=== PATIENT | female | born 1935 | race Caucasian/White ===

== ENCOUNTER 2016-11-09 12:51 | Inpatient (IN) | payer MEDICARE ==
--- NOTE | 2016-11-09 13:34 | ED Physician Chart ---
Chief Complaint/HPI - Patient Information Date Seen:: 11/09/16 Time Seen:: 13:29 Chief Complaint:: back pain History of Present Illness:: pt here for recent back pain. she 8is extremely hard of hearing to the point where attempts at converisation are almost ludicrous. Pt can give very few details about her pain but indicates that pain is diffuse over posterior mid back. there is no weakness/numbness nor incontinence. pt says "cold" exacerbates her pain. no known cough or uri sx. no fever. no urinary complaints. Allergies:: Allergies Allergy/AdvReac Type Severity Reaction Status Date / Time No Known Allergies Allergy Verified 06/17/16 17:42 Vitals:: Vital Signs - 8 hr 11/09/16 11/09/16 12:59 13:04 Temp 97.8 F HR 78 RR 18 BP 128/78 128/78 O2 Sat % 98 Historian:: Patient Review:: Transfer documents Reviewed Review of Systems - Review of Systems General/Constitutional: No fever, No chills, No weight loss, No weakness, No diaphoresis, No edema, No loss of appetite Skin: No skin lesions, No rash, No bruising Head: No headache, No light-headedness Eyes: No loss of vision, No pain, No diplopia ENT: No earache, No nasal drainage, No sore throat, No tinnitus Neck: No neck pain, No swelling, No thyromegaly, No stiffness, No mass noted Cardio Vascular: No chest pain, No palpitations, No PND, No orthopnea, No edema Pulmonary: No SOB, No cough, No sputum, No wheezing GI: No nausea, No vomiting, No diarrhea, No pain, No melena, No hematochezia, No constipation, No hematemesis G/U: No dysuria, No frequency, No hematuria Musculoskeletal: No bone or joint pain, Back pain, No muscle pain Endocrine: No polyuria, No polydipsia Psychiatric: No prior psych history, No depression, No anxiety, No suicidal ideation Hematopoietic: No bruising, No lymphadenopathy Allergic/Immuno: No urticaria, No angioedema Neurological: No syncope, No focal symptoms, No weakness, No paresthesia, No headache, No seizure, No dizziness, Confusion, No vertigo Past Medical History - Past Medical History Past Medical History: Dyslipidemia, Dementia, Other (oa, anomaly of giat and posture, pacer, anemia) Social History: Care Facility Psychiatricy History: Dementia, Other (anxiety) Medication: Reviewed Family Medical History - Family Member Mother History Unknown: Yes Physical Exam - Physical Examination General/Constitutional: Awake, Well-developed, well-nourished, Alert, No distress, GCS 15, Non-toxic appearing, Ambulatory Other Gen/Cons comments:: she 8is extremely hard of hearing (+dementia also) to the point where attempts at converisation are almost ludicrous. Pt is aware of person, ,place and situation. Head: Atraumatic Eyes: Lids, conjuctiva normal, PERRL, EOMI Skin: Nl inspection, No rash, No skin lesions, No ecchymosis, Well hydrated, No lymphadenopathy ENMT: External ears, nose nl, Nasal exam nl, Lips, teeth, gums nl Neck: Nontender, Full ROM w/o pain, No JVD, No nuchal rigidity, No bruit, No mass, No stridor Respiratory: Nl effort/Exclusion, Clear to Auscultation, No Wheeze/Rhonchi/Rales Cardio Vascular: RRR, No murmur, gallop, rubs, NL S1 S2 GI: No tenderness/rebounding/guarding, No organomegaly, No hernia, Normal BS's, Nondistended, No mass/bruits, No McBurney tenderness : No CVA tenderness Extremities: No tenderness or effusion, Full ROM, normal strength in all extremities, No edema, Normal digits & nails Neuro/Psych: Alert/oriented, DTR's symmetric, Normal sensory exam, Normal motor strength, Mood normal, No focal deficits Misc: No paraspinal tenderness Other Misc comments:: mild /mod tndr over diffuse area of mid back from mid thorax to mid lumbar. overall ok rom. pt has difficults achieving detailed exam due to asevere [place] [employer] [place] and troubel following commands. she can move her feet w nrml strength and has intact sensation. Labs/Radiology/EKG Results - Lab Results Results: Laboratory Tests 11/09/16 11/09/16 11/09/16 13:35 13:35 13:35 WBC 3.2 L RBC 2.89 L Hgb 7.3 L* Hct 21.9 L* D MCV 75.8 L MCH 25.4 L MCHC Differential 33.5 RDW 19.8 Plt Count 170 MPV 7.4 Sodium 132 L Potassium 4.1 Chloride 98 Carbon Dioxide 29.2 Anion Gap 8.9 BUN 58 H Creatinine 3.6 H Est GFR ( Amer) TNP Est GFR (Non-Af Amer) TNP BUN/Creatinine Ratio 16.1 Glucose 110 H Whole Bld Lactic Acid Calcium 11.9 H Total Bilirubin 0.3 AST 21 ALT 12 Alkaline Phosphatase 100 Troponin I 0.03 Total Protein 6.3 Albumin 3.9 Globulin 2.4 Albumin/Globulin Ratio 1.6 Lipase 76 11/09/16 13:35 WBC RBC Hgb Hct MCV MCH MCHC Differential RDW Plt Count MPV Sodium Potassium Chloride Carbon Dioxide Anion Gap BUN Creatinine Est GFR ( Amer) Est GFR (Non-Af Amer) BUN/Creatinine Ratio Glucose Whole Bld Lactic Acid 0.59 L Calcium Total Bilirubin AST ALT Alkaline Phosphatase Troponin I Total Protein Albumin Globulin Albumin/Globulin Ratio Lipase anemia noted and prbc ordered pt agitated has pulled out iv. ativan im ordered and replace iv. t+c prbc... - Radiology Results Results: ct abd - ca gb vs liver mass ct chest 1cm lung nodule ct t+l spine - mult lytic lesions poss multiple myeloma - EKG Interpretations EKG Time:: 17:55 Rate & Rhythm: sinus w ?paced ventricle [place]: -37 Intervals: ok Comments:: rbbb type vent pattern ED Septic Shock - . Is Septic Shock (SBP<90, OR Lactate>4 mmol\\L) present?: No - <6hrs of presentation: Vital Signs: Vital Signs - 8 hr 11/09/16 11/09/16 12:59 13:04 Temp 97.8 F HR 78 RR 18 BP 128/78 128/78 O2 Sat % 98 Reassessment (Disposition) - Reassessment Reassessment:: pt given ativan 1x for agitation..pulled out iv and tried to hit tika. Reassessment Condition:: Unchanged - Diagnosis Diagnosis:: 1 multiple lytic lesions of t + l spine multiple myeloma 2 lung nodule 3 back pain 4 calcified gb vs liver mass 5 transverse process fx of L4 - Patient Disposition Admitted to:: Med/Surg Condition at Disposition:: Unchanged
[2016-11-09 13:36] VITALS: BP 128/78
[2016-11-09 13:52] LABS: MEAN CELL VOLUME 75.8 fl (81-100); MEAN CORPUSCULAR HEMOGLOBIN 25.4 pg (27.0-31.0); MEAN CORPUSCULAR HGB CONC 33.5 pg (28.0-36.0); MEAN PLATELET VOLUME 7.4 fl; PLATELET COUNT 170 Th/cmm (150-400); RED BLOOD COUNT 2.89 Mil/cmm (3.80-5.20); RED CELL DISTRIBUTION WIDTH 19.8 % (11.5-20.0)
[2016-11-09 13:57] LABS: HEMOGLOBIN 7.3 gm/dL (11.7-16.1); WHITE BLOOD COUNT 3.2 Th/cmm (4.8-10.8)
[2016-11-09 13:58] LABS: HEMATOCRIT 21.9 % (35.0-45.0)
[2016-11-09 14:07] LABS: ALB/GLOB RATIO 1.6 (1.0-1.8); ALKALINE PHOSPHATASE 100 U/L (34-104); ANION GAP 8.9 (7.0-16.0); BILIRUBIN,TOTAL 0.3 mg/dL (0.3-1.0); BUN - UREA NITROGEN 58 mg/dL (7-25); BUN/CREATININE RATIO 16.1; CALCIUM SERUM 11.9 mg/dL (8.6-10.3); CARBON DIOXIDE 29.2 mEq/L (21.0-31.0); CHLORIDE 98 mEq/L (98-107); CREATININE - SERUM 3.6 mg/dL (0.6-1.2); GLUCOSE 110 mg/dL (70-105); LIPASE 76 U/L (11-82); POTASSIUM SERUM 4.1 mEq/L (3.5-5.1); SGOT 21 U/L (13-39); SGPT/ALT 12 U/L (7-52); SODIUM SERUM 132 mEq/L (136-145)
[2016-11-09 16:28] LABS: BAND NEUTROPHILE 0 % (0-10); BASOPHIL 0 % (0-3); EOSINOPHIL 2 % (0-5); NEUTROPHILS 65 % (40-80); PLATELET ESTIMATE ADEQUATE (NORMAL); PLATELET MORPHOLOGY NORMAL (NORMAL); TOTAL CELLS COUNTED 100
[2016-11-09 16:29] LABS: MICROCYTOSIS 2+
[2016-11-09 18:08] LABS: URINE BILIRUBIN NEGATIVE (NEGATIVE); URINE COLOR STRAW; URINE GLUCOSE (UA) NEGATIVE (NEGATIVE); URINE KETONE NEGATIVE (NEGATIVE)
[2016-11-09 18:09] LABS: URINE BLOOD SMALL (NEGATIVE); URINE PH 5.5; URINE PROTEIN 100 mg/dL (NEGATIVE); URINE UROBILINOGEN 0.2 E.U./dL (0.2 - 1.0)
[2016-11-09 18:10] LABS: URINE BACTERIA NONE SEEN /hpf (NONE SEEN); URINE EPITHELIAL CELLS NONE SEEN /lpf (FEW); URINE WBC 0-2 /hpf (0-5)
[2016-11-09] MEDS ORDERED: Magnesium Hydroxide (MOM) 30 mL UDC PO PRN (20:01)
[2016-11-09] MEDS ORDERED: Morphine Sulfate 2 mg/mL 1mL Syr IVP PRN (20:02)
[2016-11-09] MEDS ORDERED: Albuterol Nebulizer 2.5mg/3mL IH PRN (20:02)
[2016-11-09] MEDS ORDERED: guaiFENesin 200 MG/10 ML UDC PO PRN (20:02)
[2016-11-09] MEDS ORDERED: Maalox 30 mL Cup PO PRN (20:02)
[2016-11-09] MEDS ORDERED: Ipratropium Neb 0.5 mg/2.5 mL UD IH PRN (20:02)
--- NOTE | 2016-11-09 20:05 | Admit Criteria Form ---
Admit Criteria Forms - Admit Criteria Diagnosis: BACK PAIN Clinical Indications for Admission to Inpatient Care (Place 'X' for any and all applicable criteria): Admission is indicated for ANY ONE of the following (1)(2)(3)(4)(5)(6): [X]I. Inpatient admission required rather than observation care (Also use Back Pain: Observation Care as appropriate) because of ANY ONE of the following [ ]a) Severe pain requiring acute inpatient management [ ]b) Immediate inpatient surgery [X]c) Other condition, treatment or monitoring requiring inpatient admission [ ]II. Spine fracture with significant damage or threat of damage to vertebral column or spinal cord [ ]III. Progressive or severe neurologic deficit [ ]IV. Suspected spinal infection (e.g., epidural abscess, vertebral osteomyelitis)(10) [ ]V. Suspected cause requires inpatient treatment (eg, aortic dissection) [ ]. Cauda equina syndrome as indicated by ANY ONE of the following (9): [ ]a) Bowel dysfunction [ ]b) Bladder dysfunction [ ]c) Saddle anesthesia [ ]d) Neurologic abnormality suggesting cauda equina impingement Extended stay beyond goal length of stay may be needed for (3)(25): [ ]a) Spinal cord compression from stenosis, disk, or tumor (8)(9) [ ]b) Traumatic or pathologic vertebral fracture (33) [ ]c) Vertebral infection(10) [ ]d) Severe pain that is difficult to control [ ]e) Older patients(65 years or older) The original [employer] content created by [employer] has been revised. The portions of the content which have been revised are identified through the use of italic text or in bold, and [facility] has neither reviewed nor approved the modified material. All other unmodified content is copyright [employer]. Please see references footnoted in the original [facility] edition 2016 Admit Criteria Met?: Yes
[2016-11-09] MEDS ORDERED: D5-0.9%NS 1,000 ML IV SCH (20:15)
[2016-11-10 08:44] LABS: ANION GAP 11.1 (7.0-16.0); BUN - UREA NITROGEN 55 mg/dL (7-25); BUN/CREATININE RATIO 16.2; CALCIUM SERUM 12.1 mg/dL (8.6-10.3); CARBON DIOXIDE 29.4 mEq/L (21.0-31.0); CHLORIDE 105 mEq/L (98-107); CREATININE - SERUM 3.4 mg/dL (0.6-1.2); GLUCOSE 84 mg/dL (70-105); POTASSIUM SERUM 4.5 mEq/L (3.5-5.1); SODIUM SERUM 141 mEq/L (136-145)
[2016-11-10 08:45] LABS: % BASOPHILS 0.4 % (0.0-2.0); % LYMPHOCYTES 20.7 % (20.0-50.0); % MONOCYTES 8.9 % (2.0-10.0); MEAN CELL VOLUME 82.3 fl (81-100); MEAN PLATELET VOLUME 7.9 fl; NEUTROPHILE ABSOLUTE 2.6 Th/cmm (1.8-8.0); PLATELET COUNT 161 Th/cmm (150-400); RED BLOOD COUNT 4.21 Mil/cmm (3.80-5.20); RED CELL DISTRIBUTION WIDTH 18.7 % (11.5-20.0)
[2016-11-10 08:51] LABS: HEMATOCRIT 34.7 % (35.0-45.0); HEMOGLOBIN 11.8 gm/dL (11.7-16.1); WHITE BLOOD COUNT 3.6 Th/cmm (4.8-10.8)
[2016-11-10] MEDS ORDERED: Pneumococcal Vaccine 0.5 mL Vial IM ONE (09:00)
[2016-11-10] MEDS: Pantoprazole 40 mg EC Tab PO SCH ×2 (09:03→17:11)
[2016-11-10] MEDS: Hydrocodone/APAP 5mg/325mg Tab PO PRN (09:03)
[2016-11-10 09:19] LABS: TSH 2.1 uIU/ml (0.34-5.60)
--- NOTE | 2016-11-10 10:05 | Diagnostic Imaging Report ---
CT lumbar spine without IV contrast HISTORY: Back pain, history of malignancy COMPARISON: Previous CT abdomen and pelvis on 06/20/2016 Technique: Axial images were obtained from the lower thoracic spine to the upper sacrum without IV contrast. Reconstructions were made. total DLP: 573, CTDI5.5 Findings: Images of the lumbar spine obtained without contrast demonstrate extensive ill-defined lucencies throughout the spine and pelvis suggestive of neoplastic process. Findings are progressed since prior exam. Mild spinal scoliosis is noted with leftward convexity of the thoracolumbar spine. Osteopenia is noted. Moderate to advanced degenerative changes are seen with moderate disc space loss of height and vacuum phenomenon at L4/L5. Multilevel posterior disc bulging is noted. There may have been old transverse process fractures of L4. No evidence of an acute fracture. No subluxation. Diffuse atherosclerosis is noted. IMPRESSION: No evidence of an acute fracture. Possible old bilateral L4 transverse process fractures Extensive ill-defined lucencies throughout the lumbar spine and visualized pelvis most likely due to malignancy. Findings have progressed since previous examination. Multiple myeloma should be considered Degenerative changes. Spinal scoliosis Atherosclerotic vascular disease.
--- NOTE | 2016-11-10 10:14 | Diagnostic Imaging Report ---
CT thoracic spine without IV contrast HISTORY: Back pain, malignancy COMPARISON: Previous CT chest on 06/12/[address] lumbar spine on 11/09/2016 Technique: Axial images were obtained from the lower cervical spine to the upper lumbar spine without IV contrast. Reconstructions were made. total DLP: 634, CTDI2 Findings: Images of the thoracic spine obtained without contrast demonstrate rightward convex scoliosis of the thoracic spine. Extensive ill-defined lucencies seen throughout the axial appendicular skeleton suggestive of diffuse osseous metastatic disease. Multilevel moderate degenerative changes are noted. No evidence of acute fracture or subluxation. Atherosclerosis is noted. Osteopenia is noted. IMPRESSION: No evidence of acute fracture or subluxation Extensive ill defined osseous lucent lesions suggestive of malignancy. Multiple myeloma should be considered. This is increased since previous CT chest on 06/12/2016. Osteopenia.
[2016-11-10] MEDS ORDERED: [UNRECOGNIZED DRUG - OTHER] SUBQ SCH (10:15)
[2016-11-10] MEDS ORDERED: Dexamethasone Sodium Phos 4 mg/mL Vial IVP SCH (10:15)
[2016-11-10] MEDS ORDERED: CALCITONIN SUBQ SCH (10:15)
--- NOTE | 2016-11-10 10:22 | Diagnostic Imaging Report ---
CT Chest without IV contrast HISTORY: Back pain COMPARISON: Chest performed on 11/16/2015. Technique: Axial images were obtained from the base of the neck to the upper abdomen without IV contrast. Reconstructions were made. Total DLP 127, CT 9 Findings: Evaluation of the mediastinum is limited due to lack of IV contrast. Pacemaker is noted with leads in the region right atrium and right ventricle. Heavy atherosclerosis is noted including coronary artery calcifications. No evidence of pericardial effusion. No evidence of any aortic aneurysm. Emphysematous changes of the lungs are seen with areas of scarring greatest within the biapical lung zones. Again seen is 1.8 x 1 cm mass along the inferior aspect of the right upper lobe. Additional few 2 to 3 mm nodular opacities of the lungs are noted. Areas of scarring and bronchiectasis of the lung bases are also noted. No pleural effusions or evidence of focal consolidation. Osteopenia noted. IMPRESSION: Extensive osseous lesions suggestive of metastatic disease. Multiple myeloma should be considered. This appears increased since prior examination Osteopenia Redemonstration of 1.8 x 1 cm nodule along the inferior aspect of the right upper lobe. Findings may represent neoplastic process, however, findings are unchanged since prior examination. Clinical correlation and continued follow-up is recommended. Other less likely etiologies would include a vascular malformation. Additional 2 to 3 mm nodular the lungs, nonspecific. Consider follow-up if indicated. Emphysematous evidence lung changes. Diffuse atherosclerotic vascular disease. Pacemaker noted.
--- NOTE | 2016-11-10 10:25 | Diagnostic Imaging Report ---
CT abdomen without intravenous contrast Indication: Pain Comparison: CT abdomen and pelvis performed on 06/20/2016, Technique: Axial images were obtained from the lung bases to the iliac crests without IV contrast. Reconstructions were made. Total DLP 171, CTD I 6.3 Findings: Note that only CT of the abdomen was performed per referring ER doctor's request. Assessment of the solid organs is limited due to lack of IV contrast. No evidence of focal hepatic lesion. Large 3 cm calcification is seen within the right upper quadrant possibly a large gallstone. No focal splenic lesions. No focal pancreatic or adrenal lesions. No evidence of hydronephrosis or focal renal lesions. Moderate stool is noted. Diffuse atherosclerosis is noted. Diffuse osseous lesions are noted. IMPRESSION: Diffuse osseous lesions as seen on additional exams performed the same day suggestive of diffuse osseous metastatic disease. Multiple myeloma should be considered. Large calcification along the right upper quadrant. Findings may represent a large gallstone or less likely calcified gallbladder. Other etiologies such as a liver lesion would be considered less likely. Consider short-term follow-up ultrasound. Diffuse atherosclerosis.
[2016-11-10] MEDS: Dexamethasone Sodium Phos 10 mg/mL PF Vial IVP SCH (12:41)
--- NOTE | 2016-11-10 14:30 | Consultation ---
DATE OF CONSULTATION: 11/10/2016 REFERRING PHYSICIAN: Dr. Araujo. REASON FOR CONSULTATION: Hypercalcemia multiple myeloma. HISTORY OF PRESENT ILLNESS: The patient is an 81-year-old female who is known to me from before she was previously hospitalized with hypercalcemia on multiple occasions and at one time, treated with bisphosphonate and further workup confirmed that the patient has lambda light chain myeloma with ratio less than 0.01. The patient had refused bone marrow biopsy and she is psychotic and not suitable candidate for IV weekly therapy with Velcade. She was seen in my office last week and arrangements were made to start her on Decadron and Revlimid; however, the patient admitted to the hospital with severe anemia and hypercalcemia. She was transfused packed red blood cells and I was asked to evaluate. PAST MEDICAL HISTORY: Dyslipidemia, arrhythmia status post pacemaker, dementia and osteoarthritis. MEDICATIONS: Reviewed. PAST SURGICAL HISTORY: Placement of a pacemaker. PHYSICAL EXAMINATION: GENERAL: The patient is agitated, status post Ativan post radiation. VITAL SIGNS: Stable. Temp 98.2, blood pressure 146/74. CARDIOVASCULAR: Left chest pacemaker, no signs of bleeding. ABDOMEN: Soft. CHEST: Clear. EXTREMITIES: No edema. LABORATORY DATA: Creatinine 3.4. Her previous creatinine was ____ and it was 1.7 from May last year and prior to that, it was completely normal in September of last year. Ionized calcium from previous admission was 7.2 and today's calcium is 12.1. Total protein 6.3. Her previous workup showed normal vitamin D, B12, vitamin A and her PTH was less than 6. CBC: Hemoglobin now 11.8 and on admission was 7.3. She was transfused packed red blood cells and platelet count 161, white count 3.6. Previous urine immunofixation was positive for lambda light chain. ASSESSMENT: 1. Multiple myeloma, lambda light chain. 2. Hypercalcemia secondary to myeloma. 3. Acute kidney injury. 4. Dementia. 5. Multiple lytic bone lesions from myeloma. PLAN: I will start the patient on calcitonin to control the calcium level, vigorous hydration with normal saline, Lasix, and IV Decadron. The patient refused bone marrow biopsy and she is not a surgical candidate ____ intravenous therapy with weekly Velcade. Therefore, she will be considered for ____ Revlimid and Decadron. Her renal functions improved and if not, then oral Cytoxan and Decadron will be the best next option considering her psych condition. Also, Psych help and Nephrology help will be welcomed. Thank you, Dr. Araujo for the opportunity to participate in the care of this interesting case. JOB# [id number]
[2016-11-10] MEDS: Sodium Chloride 0.9% 1,000 ML IV SCH (18:56)
--- NOTE | 2016-11-10 19:56 | History & Physical ---
ADMIT DATE: 11/09/2016 CHIEF COMPLAINT: Intractable back pain. HISTORY OF PRESENT ILLNESS: This is an 81 years old female with history of osteoporosis, osteoarthritis, malignancy, deemed to be a multiple myeloma, being followed by Oncology, hypercholesterolemia, status post pacemaker, schizoaffective disorder, was admitted from nursing facility secondary to intractable back pain, diffuse, in the mid back. The patient had intolerable pain at the nursing facility; hence the patient was transferred for further management. The patient was evaluated in the ER and shown to have ____ the patient on CAT scan per Dr. Baez. PAST MEDICAL HISTORY: As mentioned in history of present illness. PAST SURGICAL HISTORY: Status post pacemaker, ____ unknown. ALLERGIES: No known drug allergies. MEDICATIONS: Tylenol, Benadryl, Colace, lorazepam, magnesium. The patient is also on oral chemotherapy, but it was not listed, we will concur with Dr. Cee. FAMILY HISTORY: Noncontributory. SOCIAL HISTORY: The patient in half-way. The patient is requiring 24-hour total care. REVIEW OF SYSTEMS: This is limited secondary to the patient's current mental state, we will try to obtain more detailed review of system at a later date, ____ family members not listed on the facesheet, there is a guardian Li Claros from [place], . We also tried to get more information from the nursing staff, was given number [phone]. PHYSICAL EXAMINATION: VITAL SIGNS: Blood pressure 140/73, respirations 18, pulse 87, temperature is 97.3. GENERAL: Elderly female who appears her stated age. NECK: Supple. No mass. LUNGS: Equal breath sounds, few rhonchi. HEART: Regular rate and rhythm with systolic ejection murmur. ABDOMEN: Soft, nontender. EXTREMITIES: Positive excoriation and atrophy. NEUROLOGIC: Limited. LABORATORY DATA: WBC 3.2____, hemoglobin 7.3, platelets are 170. Sodium 132, potassium 4.1, BUN 58, creatinine 2.6, glucose 110, calcium 12.1, BNP 193. UA, 100 protein, small ketones, trace leukocyte. ASSESSMENT AND PLAN: Acute renal failure, intractable back pain, severe anemia, malignancy/multiple myeloma osteoarthritis, hypercholesterolemia, pacemaker, schizoaffective disorder, hyponatremia, hyperglycemia, bedbound, ____ trying to ____ the patient, we will monitor hemoglobin and hematocrit, was sent for stool occult blood, hematology has been consulted. We will titrate the patient's pain control. We will continue to monitor the patient closely. We will also try to review the patient's pathology report from previous admission. JOB# [id number]
[2016-11-11] MEDS: Hydrocodone/APAP 5mg/325mg Tab PO PRN (00:09)
[2016-11-11] MEDS: Sodium Chloride 0.9% 1,000 ML IV SCH ×2 (06:28→19:21)
[2016-11-11 08:11] LABS: IRON SATURATION 44 % (15-55); TIBC (LCI) 382 ug/dL (250-450); UIBC 215 ug/dL (118-369)
[2016-11-11] MEDS: Pantoprazole 40 mg EC Tab PO SCH ×2 (08:47→16:22)
[2016-11-11] MEDS: Calcitonin (Salmon) 200 Iu/Actuation 3.7mL NS SCH (08:48)
[2016-11-11] MEDS: Dexamethasone Sodium Phos 10 mg/mL PF Vial IVP SCH (08:49)
[2016-11-11 13:13] LABS: FOLIC ACID 10.6 ng/mL (>3.0)
--- NOTE | 2016-11-11 13:31 | Internal Medicine Prog Note ---
Internal Medicine Subjective - Subjective Patient seen and examined:: with staff, chart reviewed Patient is:: awake, verbal, interactive Patient Complaints of:: congestion Per staff patient is:: no adverse event, noncompliant, confused Internal Medicine Objective - Results Result Diagrams: 11/10/16 08:00 11/10/16 08:00 Recent Labs: Laboratory Last Values WBC 3.6 Th/cmm (4.8-10.8) L 11/10/16 08:00 RBC 4.21 Mil/cmm (3.80-5.20) 11/10/16 08:00 Hgb 11.8 gm/dL (11.7-16.1) D 11/10/16 08:00 Hct 34.7 % (35.0-45.0) L D 11/10/16 08:00 MCV 82.3 fl (81-100) 11/10/16 08:00 MCH 28.0 pg (27.0-31.0) 11/10/16 08:00 MCHC Differential 34.0 pg (28.0-36.0) 11/10/16 08:00 RDW 18.7 % (11.5-20.0) 11/10/16 08:00 Plt Count 161 Th/cmm (150-400) 11/10/16 08:00 MPV 7.9 fl 11/10/16 08:00 Neutrophils % 69.0 % (40.0-80.0) 11/10/16 08:00 Band Neutrophils % 0 % (0-10) 11/09/16 13:35 Lymphocytes % 20.7 % (20.0-50.0) 11/10/16 08:00 Monocytes % 8.9 % (2.0-10.0) 11/10/16 08:00 Eosinophils % 1.0 % (0.0-5.0) 11/10/16 08:00 Basophils % 0.4 % (0.0-2.0) 11/10/16 08:00 Neutrophils (Manual) 65 % (40-80) 11/09/16 13:35 Lymphocytes 26 % (20-50) 11/09/16 13:35 Monocytes 7 % (2-10) 11/09/16 13:35 Eosinophils 2 % (0-5) 11/09/16 13:35 Basophils 0 % (0-3) 11/09/16 13:35 Platelet Estimate ADEQUATE (NORMAL) 11/09/16 13:35 Platelet Morphology NORMAL (NORMAL) 11/09/16 13:35 Microcytosis 2+ 11/09/16 13:35 RBC Morph Micro Appear ABNORMAL (NORMAL) 11/09/16 13:35 Sodium 141 mEq/L (136-145) 11/10/16 08:00 Potassium 4.5 mEq/L (3.5-5.1) 11/10/16 08:00 Chloride 105 mEq/L (98-107) 11/10/16 08:00 Carbon Dioxide 29.4 mEq/L (21.0-31.0) 11/10/16 08:00 Anion Gap 11.1 (7.0-16.0) 11/10/16 08:00 BUN 55 mg/dL (7-25) H 11/10/16 08:00 Creatinine 3.4 mg/dL (0.6-1.2) H 11/10/16 08:00 Est GFR ( Amer) TNP 11/10/16 08:00 Est GFR (Non-Af Amer) TNP 11/10/16 08:00 BUN/Creatinine Ratio 16.2 11/10/16 08:00 Glucose 84 mg/dL (70-105) 11/10/16 08:00 Whole Bld Lactic Acid 0.59 mmol/L (0.60-1.99) L 11/09/16 13:35 Calcium 12.1 mg/dL (8.6-10.3) H 11/10/16 08:00 Iron 167 ug/dL (27-139) H 11/10/16 08:00 TIBC 382 ug/dL (250-450) 11/10/16 08:00 Iron Saturation 44 % (15-55) 11/10/16 08:00 Unsaturated IBC 215 ug/dL (118-369) 11/10/16 08:00 Total Bilirubin 0.3 mg/dL (0.3-1.0) 11/09/16 13:35 AST 21 U/L (13-39) 11/09/16 13:35 ALT 12 U/L (7-52) 11/09/16 13:35 Alkaline Phosphatase 100 U/L (34-104) 11/09/16 13:35 Ammonia 36 umol/L (16-53) 11/10/16 08:00 Troponin I 0.03 ng/mL (0.01-0.05) 11/09/16 13:35 B-Natriuretic Peptide 193.0 pg/mL (5.0-100.0) H 11/10/16 08:00 Total Protein 6.3 gm/dL (6.0-8.3) 11/09/16 13:35 Albumin 3.9 gm/dL (3.7-5.3) 11/09/16 13:35 Globulin 2.4 gm/dL 11/09/16 13:35 Albumin/Globulin Ratio 1.6 (1.0-1.8) 11/09/16 13:35 Lipase 76 U/L (11-82) 11/09/16 13:35 Vitamin B12 653 pg/mL (211-946) 11/10/16 08:00 Folic Acid 10.6 ng/mL (>3.0) 11/10/16 08:00 TSH 2.10 uIU/ml (0.34-5.60) 11/10/16 08:00 Urine Source CLEAN C 11/09/16 17:35 Urine Color STRAW 11/09/16 17:35 Urine Clarity CLEAR (CLEAR) 11/09/16 17:35 Urine pH 5.5 11/09/16 17:35 Ur Specific [place] 1.020 (1.005-1.030) 11/09/16 17:35 Urine Protein 100 mg/dL (NEGATIVE) H 11/09/16 17:35 Urine Glucose (UA) NEGATIVE mg/dL (NEGATIVE) 11/09/16 17:35 Urine Ketones NEGATIVE mg/dL (NEGATIVE) 11/09/16 17:35 Urine Blood SMALL (NEGATIVE) H 11/09/16 17:35 Urine Nitrate NEGATIVE (NEGATIVE) 11/09/16 17:35 Urine Bilirubin NEGATIVE (NEGATIVE) 11/09/16 17:35 Urine Urobilinogen 0.2 E.U./dL (0.2 - 1.0) 11/09/16 17:35 Ur Leukocyte Esterase TRACE (NEGATIVE) H 11/09/16 17:35 Urine RBC 2-5 /hpf (0-5) 11/09/16 17:35 Urine WBC 0-2 /hpf (0-5) 11/09/16 17:35 Ur Epithelial Cells NONE SEEN /lpf (FEW) 11/09/16 17:35 Urine Bacteria NONE SEEN /hpf (NONE SEEN) 11/09/16 17:35 Serum Immunofixation 486 mg/dL (700-1600) L 11/10/16 11:50 Blood Type O POSITIVE 11/09/16 16:20 Antibody Screen NEGATIVE 11/09/16 16:20 Crossmatch See Detail 11/09/16 16:20 - Physical Exam Vitals and I&O: Vital Signs Temp 98.5 F 11/11/16 13:12 Pulse 98 11/11/16 13:12 Resp 18 11/11/16 13:12 BP 148/68 11/11/16 13:12 Pulse Ox 94 11/11/16 13:12 Intake & Output 11/10/16 11/11/16 11/11/16 18:59 06:59 18:59 Intake Total 1120 Balance 1120 Intake: Intake, IV Amount 1000 Sodium Chloride 0.9% 1, 1000 000 ml @ 100 mls/hr IV . Q10H [facility] Rx#:[id number] Oral 120 Other: # Voids 2 2 # Bowel Movements 1 0 Active Medications: Current Medications Acetaminophen (Tylenol) 650 mg PO Q4HR PRN PRN Reason: Mild Pain or Fever >101 Stop: 01/08/17 20:01 Acetaminophen/Hydrocodone Bitart ([place] 5mg/325mg) 1 tab PO Q4H PRN PRN Reason: Pain (Moderate) Stop: 01/08/17 20:01 Last Admin: 11/11/16 00:09 Dose: 1 tab Al Hydrox/Mg Hydrox/Simethicone (Maalox) 30 ml PO Q6HR PRN PRN Reason: GI DISTRESS Stop: 01/08/17 20:01 Albuterol Sulfate (Albuterol 2.5mg/3ml Neb Ud) 2.5 mg IH Q2HR PRN PRN Reason: Shortness of Breath or Wheeze Stop: 01/08/17 20:01 Calcitonin [place] (Miacalcin) 200 iu NS DAILY [facility] Stop: 01/10/17 08:59 Last Admin: 11/11/16 08:48 Dose: 200 iu Dexamethasone Sodium Phosphate (Decadron) 40 mg IVP DAILY [facility] Stop: 01/09/17 10:59 Last Admin: 11/11/16 08:49 Dose: 40 mg Diphenhydramine HCl (Benadryl) 25 mg PO HS PRN PRN Reason: Itching Stop: 01/08/17 19:38 Last Admin: 11/09/16 20:38 Dose: 25 mg Docusate Sodium (Colace) 100 mg PO BID [facility] Stop: 01/09/17 08:59 Last Admin: 11/11/16 08:47 Dose: 100 mg Furosemide (Lasix) 20 mg IVP DAILY [facility] Stop: 01/09/17 10:29 Last Admin: 11/11/16 08:47 Dose: 20 mg Guaifenesin (Robitussin) 200 mg PO Q4HR PRN PRN Reason: Cough or Congestion Stop: 01/08/17 20:01 Sodium Chloride (Nacl 0.9%) 1,000 mls @ 100 mls/hr IV .Q10H [facility] Stop: 01/09/17 10:25 Last Admin: 11/11/16 06:28 Dose: 100 mls/hr Ipratropium [place] (Atrovent Neb 0.5mg/2.5ml) 0.5 mg IH Q2HR PRN PRN Reason: Shortness of Breath or Wheeze Stop: 01/08/17 20:01 Lorazepam (Ativan) 0.5 mg PO Q4HR PRN; Protocol PRN Reason: Anxiety Stop: 01/08/17 19:38 Last Admin: 11/10/16 09:17 Dose: 0.5 mg Magnesium Hydroxide (Milk Of Magnesia) 30 ml PO DAILY PRN PRN Reason: Constipation Stop: 01/08/17 20:00 Morphine Sulfate (Morphine) 1 mg IVP Q4HR PRN PRN Reason: Pain (Severe) Stop: 01/08/17 20:01 Ondansetron HCl (Zofran) 4 mg IV Q8H PRN PRN Reason: Nausea / Vomiting Stop: 01/08/17 20:01 Pantoprazole Sodium (Protonix) 40 mg PO BID [facility] Stop: 01/09/17 08:59 Last Admin: 11/11/16 08:47 Dose: 40 mg Zolpidem Tartrate (Ambien) 10 mg PO HS PRN PRN Reason: Insomnia Stop: 01/08/17 20:01 Last Admin: 11/09/16 20:38 Dose: 10 mg General: demented HEENT: NC/AT, PERRLA Neck: Supple, No JVD Lungs: congested, rales Cardiovascular: RRR, Normal S1, Normal S2 Abdomen: soft non-tender, globular, positive bowel sound Extremities: excoriation, contracture Neurological: disorganized, unable to follow command - Procedures Procedures: Procedures Procedure Code Date BLOOD TRANSFUSION SERVICE 86559 11/09/16 TRANSFUSE NONAUT RED BLOOD CELLS IN PERIPH VEIN, PERC 03256K2 11/09/16 Internal Medicine Assmt/Plan - Assessment Assessment: arf intractable back pain severe anemia mm oa sad hypercalcemia - Plan Plan: cont on iv hydration pain control monitor renal fu\nction will refe4r to dr jose seen by heme
[2016-11-12] MEDS: Hydrocodone/APAP 5mg/325mg Tab PO PRN ×2 (05:14→17:09)
[2016-11-12] MEDS: Sodium Chloride 0.9% 1,000 ML IV SCH ×2 (08:25→23:01)
[2016-11-12] MEDS: Pantoprazole 40 mg EC Tab PO SCH ×2 (09:05→17:05)
[2016-11-12] MEDS: Calcitonin (Salmon) 200 Iu/Actuation 3.7mL NS SCH (09:05)
[2016-11-12] MEDS: Dexamethasone Sodium Phos 10 mg/mL PF Vial IVP SCH (09:06)
--- NOTE | 2016-11-12 12:03 | Consultation ---
DATE OF CONSULTATION: 11/11/2016 RENAL CONSULTATION NOTE HISTORY OF PRESENT ILLNESS: The patient is an 81-year-old who was brought in here at the present time because of inadequate oral intake and has been noted to have hypercalcemia. This patient is known to us from previous hospital admission approximately about a year ago when she was diagnosed in 2016. She was diagnosed to have lambda light chain multiple myeloma. She was treated conservatively at [facility] where the patient is a resident with conservative treatment. She seems to have been difficult patient to handle because of the presence of psychotic episodes that this patient has. PAST MEDICAL HISTORY: From a previous hospital entry, she has dementia, behavioral disturbance, psychosis, chronic kidney disease, was previously diagnosed prior to final diagnosis of multiple myeloma, dementia, and dyslipidemia. CURRENT MEDICATIONS: She is currently on acetaminophen, albuterol, dexamethasone, diphenhydramine, magnesium oxide, multivitamins, and pamidronate. His renal function currently ____ creatinine of 3.4 with baseline renal function before 1.7 when she was diagnosed to have multiple myeloma. PHYSICAL EXAMINATION: GENERAL: She is not appropriate all over in her room, could not keep still. VITAL SIGNS: blood pressure 121/53, temperature 98.2, and respiratory rate of 12. CHEST: Clear to auscultation. HEART: Regular sinus. ABDOMEN: Soft. Bowel sounds are present. No organ enlargement. EXTREMITIES: No edema of both lower extremities. LABORATORY STUDY: Reviewed. White blood cell counts 3200, hemoglobin 7.3, and hematocrit of 21.9. Post transfusion, H and H are 11.8 and 34. Sodium 141, potassium 4.5, and chloride of 105, CO2 of 29, BUN of 55, and creatinine of 3.4. Her calcium is 12.1. IMPRESSION: 1. Multiple myeloma. 2. Hypercalcemia. 3. Chronic renal failure secondary to multiple myeloma. PLAN: Conservative therapy is initiated, hydration, diuresis, calcitonin was given, and she probably will need maintenance of her ____ at present time. Especially in this patient who has psychotic episode and behavioral disturbance, she is not a good candidate for hemodialysis. She is one of those patients who will pull out her catheter during dialysis. Hopefully, we could be able to salvage her renal function to a point that she would not require at that point. JOB# [id number]
--- NOTE | 2016-11-12 13:43 | General Progress Note ---
Subjective - Review of Systems Service Date: 11/12/16 Subjective: sleeping, periods of agitation this am Objective - Results Result Diagrams: 11/10/16 08:00 11/10/16 08:00 Recent Labs: Laboratory Last Values WBC 3.6 Th/cmm (4.8-10.8) L 11/10/16 08:00 RBC 4.21 Mil/cmm (3.80-5.20) 11/10/16 08:00 Hgb 11.8 gm/dL (11.7-16.1) D 11/10/16 08:00 Hct 34.7 % (35.0-45.0) L D 11/10/16 08:00 MCV 82.3 fl (81-100) 11/10/16 08:00 MCH 28.0 pg (27.0-31.0) 11/10/16 08:00 MCHC Differential 34.0 pg (28.0-36.0) 11/10/16 08:00 RDW 18.7 % (11.5-20.0) 11/10/16 08:00 Plt Count 161 Th/cmm (150-400) 11/10/16 08:00 MPV 7.9 fl 11/10/16 08:00 Neutrophils % 69.0 % (40.0-80.0) 11/10/16 08:00 Band Neutrophils % 0 % (0-10) 11/09/16 13:35 Lymphocytes % 20.7 % (20.0-50.0) 11/10/16 08:00 Monocytes % 8.9 % (2.0-10.0) 11/10/16 08:00 Eosinophils % 1.0 % (0.0-5.0) 11/10/16 08:00 Basophils % 0.4 % (0.0-2.0) 11/10/16 08:00 Neutrophils (Manual) 65 % (40-80) 11/09/16 13:35 Lymphocytes 26 % (20-50) 11/09/16 13:35 Monocytes 7 % (2-10) 11/09/16 13:35 Eosinophils 2 % (0-5) 11/09/16 13:35 Basophils 0 % (0-3) 11/09/16 13:35 Platelet Estimate ADEQUATE (NORMAL) 11/09/16 13:35 Platelet Morphology NORMAL (NORMAL) 11/09/16 13:35 Microcytosis 2+ 11/09/16 13:35 RBC Morph Micro Appear ABNORMAL (NORMAL) 11/09/16 13:35 Sodium 141 mEq/L (136-145) 11/10/16 08:00 Potassium 4.5 mEq/L (3.5-5.1) 11/10/16 08:00 Chloride 105 mEq/L (98-107) 11/10/16 08:00 Carbon Dioxide 29.4 mEq/L (21.0-31.0) 11/10/16 08:00 Anion Gap 11.1 (7.0-16.0) 11/10/16 08:00 BUN 55 mg/dL (7-25) H 11/10/16 08:00 Creatinine 3.4 mg/dL (0.6-1.2) H 11/10/16 08:00 Est GFR ( Amer) TNP 11/10/16 08:00 Est GFR (Non-Af Amer) TNP 11/10/16 08:00 BUN/Creatinine Ratio 16.2 11/10/16 08:00 Glucose 84 mg/dL (70-105) 11/10/16 08:00 Whole Bld Lactic Acid 0.59 mmol/L (0.60-1.99) L 11/09/16 13:35 Calcium 12.1 mg/dL (8.6-10.3) H 11/10/16 08:00 Phosphorus 3.1 mg/dL (2.5-5.0) 11/12/16 05:35 Iron 167 ug/dL (27-139) H 11/10/16 08:00 TIBC 382 ug/dL (250-450) 11/10/16 08:00 Iron Saturation 44 % (15-55) 11/10/16 08:00 Unsaturated IBC 215 ug/dL (118-369) 11/10/16 08:00 Ferritin 17 ng/mL (15-150) 11/10/16 08:00 Total Bilirubin 0.3 mg/dL (0.3-1.0) 11/09/16 13:35 AST 21 U/L (13-39) 11/09/16 13:35 ALT 12 U/L (7-52) 11/09/16 13:35 Alkaline Phosphatase 100 U/L (34-104) 11/09/16 13:35 Ammonia 36 umol/L (16-53) 11/10/16 08:00 Troponin I 0.03 ng/mL (0.01-0.05) 11/09/16 13:35 B-Natriuretic Peptide 193.0 pg/mL (5.0-100.0) H 11/10/16 08:00 Total Protein 6.3 gm/dL (6.0-8.3) 11/09/16 13:35 Albumin 3.9 gm/dL (3.7-5.3) 11/09/16 13:35 Globulin 2.4 gm/dL 11/09/16 13:35 Albumin/Globulin Ratio 1.6 (1.0-1.8) 11/09/16 13:35 Lipase 76 U/L (11-82) 11/09/16 13:35 Vitamin B12 653 pg/mL (211-946) 11/10/16 08:00 Folic Acid 10.6 ng/mL (>3.0) 11/10/16 08:00 TSH 2.10 uIU/ml (0.34-5.60) 11/10/16 08:00 Urine Source CLEAN C 11/09/16 17:35 Urine Color STRAW 11/09/16 17:35 Urine Clarity CLEAR (CLEAR) 11/09/16 17:35 Urine pH 5.5 11/09/16 17:35 Ur Specific [place] 1.020 (1.005-1.030) 11/09/16 17:35 Urine Protein 100 mg/dL (NEGATIVE) H 11/09/16 17:35 Urine Glucose (UA) NEGATIVE mg/dL (NEGATIVE) 11/09/16 17:35 Urine Ketones NEGATIVE mg/dL (NEGATIVE) 11/09/16 17:35 Urine Blood SMALL (NEGATIVE) H 11/09/16 17:35 Urine Nitrate NEGATIVE (NEGATIVE) 11/09/16 17:35 Urine Bilirubin NEGATIVE (NEGATIVE) 11/09/16 17:35 Urine Urobilinogen 0.2 E.U./dL (0.2 - 1.0) 11/09/16 17:35 Ur Leukocyte Esterase TRACE (NEGATIVE) H 11/09/16 17:35 Urine RBC 2-5 /hpf (0-5) 11/09/16 17:35 Urine WBC 0-2 /hpf (0-5) 11/09/16 17:35 Ur Epithelial Cells NONE SEEN /lpf (FEW) 11/09/16 17:35 Urine Bacteria NONE SEEN /hpf (NONE SEEN) 11/09/16 17:35 Serum Immunofixation 486 mg/dL (700-1600) L 11/10/16 11:50 Blood Type O POSITIVE 11/09/16 16:20 Antibody Screen NEGATIVE 11/09/16 16:20 Crossmatch See Detail 11/09/16 16:20 - Physical Exam Vitals and I&O: Vital Signs Temp 98.4 F 11/12/16 09:00 Pulse 88 11/12/16 09:00 Resp 18 11/12/16 09:00 BP 126/65 11/12/16 09:06 Pulse Ox 99 11/12/16 09:00 Intake & Output 11/11/16 11/12/16 11/12/16 18:59 06:59 18:59 Intake Total 1000 120 Output Total 520 Balance 1000 -400 Intake: Intake, IV Amount 1000 Sodium Chloride 0.9% 1, 1000 000 ml @ 100 mls/hr IV . Q10H [facility] Rx#:[id number] Oral 120 Output: Urine 520 Stool 0 Other: # Voids 5 Active Medications: Current Medications Acetaminophen (Tylenol) 650 mg PO Q4HR PRN PRN Reason: Mild Pain or Fever >101 Stop: 01/08/17 20:01 Acetaminophen/Hydrocodone Bitart ([place] 5mg/325mg) 1 tab PO Q4H PRN PRN Reason: Pain (Moderate) Stop: 01/08/17 20:01 Last Admin: 11/12/16 05:14 Dose: 1 tab Al Hydrox/Mg Hydrox/Simethicone (Maalox) 30 ml PO Q6HR PRN PRN Reason: GI DISTRESS Stop: 01/08/17 20:01 Albuterol Sulfate (Albuterol 2.5mg/3ml Neb Ud) 2.5 mg IH Q2HR PRN PRN Reason: Shortness of Breath or Wheeze Stop: 01/08/17 20:01 Calcitonin [place] (Miacalcin) 200 iu NS DAILY [facility] Stop: 01/10/17 08:59 Last Admin: 11/12/16 09:05 Dose: 200 iu Dexamethasone Sodium Phosphate (Decadron) 40 mg IVP DAILY [facility] Stop: 01/09/17 10:59 Last Admin: 11/12/16 09:06 Dose: 40 mg Diphenhydramine HCl (Benadryl) 25 mg PO HS PRN PRN Reason: Itching Stop: 01/08/17 19:38 Last Admin: 11/09/16 20:38 Dose: 25 mg Docusate Sodium (Colace) 100 mg PO BID [facility] Stop: 01/09/17 08:59 Last Admin: 11/12/16 09:05 Dose: 100 mg Furosemide (Lasix) 20 mg IVP DAILY [facility] Stop: 01/09/17 10:29 Last Admin: 11/12/16 09:06 Dose: 20 mg Guaifenesin (Robitussin) 200 mg PO Q4HR PRN PRN Reason: Cough or Congestion Stop: 01/08/17 20:01 Sodium Chloride (Nacl 0.9%) 1,000 mls @ 100 mls/hr IV .Q10H [facility] Stop: 01/09/17 10:25 Last Admin: 11/12/16 08:25 Dose: Not Given Ipratropium [place] (Atrovent Neb 0.5mg/2.5ml) 0.5 mg IH Q2HR PRN PRN Reason: Shortness of Breath or Wheeze Stop: 01/08/17 20:01 Lorazepam (Ativan) 0.5 mg PO Q4HR PRN; Protocol PRN Reason: Anxiety Stop: 01/08/17 19:38 Last Admin: 11/12/16 09:05 Dose: 0.5 mg Magnesium Hydroxide (Milk Of Magnesia) 30 ml PO DAILY PRN PRN Reason: Constipation Stop: 01/08/17 20:00 Morphine Sulfate (Morphine) 1 mg IVP Q4HR PRN PRN Reason: Pain (Severe) Stop: 01/08/17 20:01 Ondansetron HCl (Zofran) 4 mg IV Q8H PRN PRN Reason: Nausea / Vomiting Stop: 01/08/17 20:01 Pantoprazole Sodium (Protonix) 40 mg PO BID [facility] Stop: 01/09/17 08:59 Last Admin: 11/12/16 09:05 Dose: 40 mg Zolpidem Tartrate (Ambien) 10 mg PO HS PRN PRN Reason: Insomnia Stop: 01/08/17 20:01 Last Admin: 11/11/16 21:38 Dose: 10 mg General: No acute distress HEENT: Atraumatic, Mucous membr. moist/pink Neck: Supple, +2 carotid pulse wo bruit Cardiovascular: Regular rate, Normal S1, Normal S2 Lungs: Clear to auscultation Abdomen: Bowel sounds, Soft Extremities: no Edema Neurological: Sensation intact Skin: no Rash - Procedures Procedures: Procedures Procedure Code Date BLOOD TRANSFUSION SERVICE 80936 11/09/16 TRANSFUSE NONAUT RED BLOOD CELLS IN PERIPH VEIN, PERC 52205I2 11/09/16 Assessment/Plan - Problem List Patient Problems: All Active Problems Agitation (Acute) R45.1 Anemia (Acute) D64.9 Osteoarthritis (Acute) M19.90 Pacemaker (Acute) Z95.0 - Assessment Assessment: 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 to MM, CKD DJD Osteopenia Scizoaffective disorder S/P PPP Backpain 2nd to bone mets - Plan Plan: Lab - Result Diagrams 11/10/16 08:00 11/10/16 08:00 Current Medications Acetaminophen (Tylenol) 650 mg PO Q4HR PRN PRN Reason: Mild Pain or Fever >101 Stop: 01/08/17 20:01 Acetaminophen/Hydrocodone Bitart ([place] 5mg/325mg) 1 tab PO Q4H PRN PRN Reason: Pain (Moderate) Stop: 01/08/17 20:01 Last Admin: 11/12/16 05:14 Dose: 1 tab Al Hydrox/Mg Hydrox/Simethicone (Maalox) 30 ml PO Q6HR PRN PRN Reason: GI DISTRESS Stop: 01/08/17 20:01 Albuterol Sulfate (Albuterol 2.5mg/3ml Neb Ud) 2.5 mg IH Q2HR PRN PRN Reason: Shortness of Breath or Wheeze Stop: 01/08/17 20:01 Calcitonin [place] (Miacalcin) 200 iu NS DAILY [facility] Stop: 01/10/17 08:59 Last Admin: 11/12/16 09:05 Dose: 200 iu Dexamethasone Sodium Phosphate (Decadron) 40 mg IVP DAILY [facility] Stop: 01/09/17 10:59 Last Admin: 11/12/16 09:06 Dose: 40 mg Diphenhydramine HCl (Benadryl) 25 mg PO HS PRN PRN Reason: Itching Stop: 01/08/17 19:38 Last Admin: 11/09/16 20:38 Dose: 25 mg Docusate Sodium (Colace) 100 mg PO BID [facility] Stop: 01/09/17 08:59 Last Admin: 11/12/16 09:05 Dose: 100 mg Furosemide (Lasix) 20 mg IVP DAILY [facility] Stop: 01/09/17 10:29 Last Admin: 11/12/16 09:06 Dose: 20 mg Guaifenesin (Robitussin) 200 mg PO Q4HR PRN PRN Reason: Cough or Congestion Stop: 01/08/17 20:01 Sodium Chloride (Nacl 0.9%) 1,000 mls @ 100 mls/hr IV .Q10H [facility] Stop: 01/09/17 10:25 Last Admin: 11/12/16 08:25 Dose: Not Given Ipratropium [place] (Atrovent Neb 0.5mg/2.5ml) 0.5 mg IH Q2HR PRN PRN Reason: Shortness of Breath or Wheeze Stop: 01/08/17 20:01 Lorazepam (Ativan) 0.5 mg PO Q4HR PRN; Protocol PRN Reason: Anxiety Stop: 01/08/17 19:38 Last Admin: 11/12/16 09:05 Dose: 0.5 mg Magnesium Hydroxide (Milk Of Magnesia) 30 ml PO DAILY PRN PRN Reason: Constipation Stop: 01/08/17 20:00 Morphine Sulfate (Morphine) 1 mg IVP Q4HR PRN PRN Reason: Pain (Severe) Stop: 01/08/17 20:01 Ondansetron HCl (Zofran) 4 mg IV Q8H PRN PRN Reason: Nausea / Vomiting Stop: 01/08/17 20:01 Pantoprazole Sodium (Protonix) 40 mg PO BID [facility] Stop: 01/09/17 08:59 Last Admin: 11/12/16 09:05 Dose: 40 mg Zolpidem Tartrate (Ambien) 10 mg PO HS PRN PRN Reason: Insomnia Stop: 01/08/17 20:01 Last Admin: 11/11/16 21:38 Dose: 10 mg No change kidney fnc continue ivf, dc lasix continue Calcitonin followed by [facility] supportive care only due to psychosis f/u electrolytes, cbc
[2016-11-12 18:38] LABS: MEAN CELL VOLUME 81.9 fl (81-100); MEAN CORPUSCULAR HEMOGLOBIN 27.9 pg (27.0-31.0); MEAN PLATELET VOLUME 7.6 fl; PLATELET COUNT 146 Th/cmm (150-400); RED CELL DISTRIBUTION WIDTH 18.9 % (11.5-20.0)
[2016-11-12 18:49] LABS: HEMATOCRIT 28.7 % (35.0-45.0); HEMOGLOBIN 9.7 gm/dL (11.7-16.1); WHITE BLOOD COUNT 7.5 Th/cmm (4.8-10.8)
[2016-11-12 19:09] LABS: NEUTROPHILS 95 % (40-80); TOTAL CELLS COUNTED 100
[2016-11-12 19:10] LABS: PLATELET ESTIMATE ADEQUATE (NORMAL); PLATELET MORPHOLOGY NORMAL (NORMAL)
[2016-11-12 19:13] LABS: ANION GAP 11.3 (7.0-16.0); BUN - UREA NITROGEN 58 mg/dL (7-25); BUN/CREATININE RATIO 23.2; CHLORIDE 104 mEq/L (98-107); CREATININE - SERUM 2.5 mg/dL (0.6-1.2); GLUCOSE 161 mg/dL (70-105); POTASSIUM SERUM 4.3 mEq/L (3.5-5.1); SODIUM SERUM 134 mEq/L (136-145)
--- NOTE | 2016-11-12 20:59 | Internal Medicine Prog Note ---
Internal Medicine Subjective - Subjective Patient seen and examined:: with staff, chart reviewed Patient is:: awake, verbal, interactive Patient Complaints of:: congestion Per staff patient is:: no adverse event, poor appetite, confused Internal Medicine Objective - Results Result Diagrams: 11/12/16 18:31 11/12/16 18:31 Recent Labs: Laboratory Last Values WBC 7.5 Th/cmm (4.8-10.8) D 11/12/16 18:31 RBC 3.50 Mil/cmm (3.80-5.20) L 11/12/16 18:31 Hgb 9.7 gm/dL (11.7-16.1) L D 11/12/16 18: Hct 28.7 % (35.0-45.0) L D 11/12/16 18: MCV 81.9 fl (81-100) 11/12/16 18:31 MCH 27.9 pg (27.0-31.0) 11/12/16 18: MCHC Differential 34.0 pg (28.0-36.0) 11/12/16 18: RDW 18.9 % (11.5-20.0) 11/12/16 18:31 Plt Count 146 Th/cmm (150-400) L 11/12/16 18:31 MPV 7.6 fl 11/12/16 18:31 Neutrophils % 69.0 % (40.0-80.0) 11/10/16 08:00 Band Neutrophils % 0 % (0-10) 11/09/16 13:35 Lymphocytes % 20.7 % (20.0-50.0) 11/10/16 08:00 Monocytes % 8.9 % (2.0-10.0) 11/10/16 08:00 Eosinophils % 1.0 % (0.0-5.0) 11/10/16 08:00 Basophils % 0.4 % (0.0-2.0) 11/10/16 08:00 Neutrophils (Manual) 95 % (40-80) H 11/12/16 18:31 Lymphocytes 4 % (20-50) L 11/12/16 18:31 Monocytes 1 % (2-10) L 11/12/16 18:31 Eosinophils 2 % (0-5) 11/09/16 13:35 Basophils 0 % (0-3) 11/09/16 13:35 Platelet Estimate ADEQUATE (NORMAL) 11/12/16 18:31 Platelet Morphology NORMAL (NORMAL) 11/12/16 18:31 Microcytosis 2+ 11/09/16 13:35 RBC Morph Micro Appear NORMAL (NORMAL) 11/12/16 18:31 Sodium 134 mEq/L (136-145) L 11/12/16 18:31 Potassium 4.3 mEq/L (3.5-5.1) 11/12/16 18:31 Chloride 104 mEq/L (98-107) 11/12/16 18:31 Carbon Dioxide 23.0 mEq/L (21.0-31.0) 11/12/16 18:31 Anion Gap 11.3 (7.0-16.0) 11/12/16 18:31 BUN 58 mg/dL (7-25) H 11/12/16 18:31 Creatinine 2.5 mg/dL (0.6-1.2) H 11/12/16 18:31 Est GFR ( Amer) TNP 11/12/16 18:31 Est GFR (Non-Af Amer) TNP 11/12/16 18:31 BUN/Creatinine Ratio 23.2 11/12/16 18:31 Glucose 161 mg/dL (70-105) H 11/12/16 18:31 Whole Bld Lactic Acid 0.59 mmol/L (0.60-1.99) L 11/09/16 13:35 Calcium 9.0 mg/dL (8.6-10.3) 11/12/16 18:31 Phosphorus 3.1 mg/dL (2.5-5.0) 11/12/16 05:35 Iron 167 ug/dL (27-139) H 11/10/16 08:00 TIBC 382 ug/dL (250-450) 11/10/16 08:00 Iron Saturation 44 % (15-55) 11/10/16 08:00 Unsaturated IBC 215 ug/dL (118-369) 11/10/16 08:00 Ferritin 17 ng/mL (15-150) 11/10/16 08:00 Total Bilirubin 0.3 mg/dL (0.3-1.0) 11/09/16 13:35 AST 21 U/L (13-39) 11/09/16 13:35 ALT 12 U/L (7-52) 11/09/16 13:35 Alkaline Phosphatase 100 U/L (34-104) 11/09/16 13:35 Ammonia 36 umol/L (16-53) 11/10/16 08:00 Troponin I 0.03 ng/mL (0.01-0.05) 11/09/16 13:35 B-Natriuretic Peptide 193.0 pg/mL (5.0-100.0) H 11/10/16 08:00 Total Protein 6.3 gm/dL (6.0-8.3) 11/09/16 13:35 Albumin 3.9 gm/dL (3.7-5.3) 11/09/16 13:35 Globulin 2.4 gm/dL 11/09/16 13:35 Albumin/Globulin Ratio 1.6 (1.0-1.8) 11/09/16 13:35 Lipase 76 U/L (11-82) 11/09/16 13:35 Vitamin B12 653 pg/mL (211-946) 11/10/16 08:00 Folic Acid 10.6 ng/mL (>3.0) 11/10/16 08:00 TSH 2.10 uIU/ml (0.34-5.60) 11/10/16 08:00 Urine Source CLEAN C 11/09/16 17:35 Urine Color STRAW 11/09/16 17:35 Urine Clarity CLEAR (CLEAR) 11/09/16 17:35 Urine pH 5.5 11/09/16 17:35 Ur Specific [place] 1.020 (1.005-1.030) 11/09/16 17:35 Urine Protein 100 mg/dL (NEGATIVE) H 11/09/16 17:35 Urine Glucose (UA) NEGATIVE mg/dL (NEGATIVE) 11/09/16 17:35 Urine Ketones NEGATIVE mg/dL (NEGATIVE) 11/09/16 17:35 Urine Blood SMALL (NEGATIVE) H 11/09/16 17:35 Urine Nitrate NEGATIVE (NEGATIVE) 11/09/16 17:35 Urine Bilirubin NEGATIVE (NEGATIVE) 11/09/16 17:35 Urine Urobilinogen 0.2 E.U./dL (0.2 - 1.0) 11/09/16 17:35 Ur Leukocyte Esterase TRACE (NEGATIVE) H 11/09/16 17:35 Urine RBC 2-5 /hpf (0-5) 11/09/16 17:35 Urine WBC 0-2 /hpf (0-5) 11/09/16 17:35 Ur Epithelial Cells NONE SEEN /lpf (FEW) 11/09/16 17:35 Urine Bacteria NONE SEEN /hpf (NONE SEEN) 11/09/16 17:35 Serum Immunofixation 486 mg/dL (700-1600) L 11/10/16 11:50 Blood Type O POSITIVE 11/09/16 16:20 Antibody Screen NEGATIVE 11/09/16 16:20 Crossmatch See Detail 11/09/16 16:20 - Physical Exam Vitals and I&O: Vital Signs Temp 98.4 F 11/12/16 09:00 Pulse 88 11/12/16 09:00 Resp 18 11/12/16 20:00 BP 126/65 11/12/16 09:06 Pulse Ox 99 11/12/16 09:00 Intake & Output 11/12/16 11/12/16 11/13/16 06:59 18:59 06:59 Intake Total 120 Output Total 520 Balance -400 Intake: Oral 120 Output: Urine 520 Stool 0 Other: # Voids 5 Active Medications: Current Medications Acetaminophen (Tylenol) 650 mg PO Q4HR PRN PRN Reason: Mild Pain or Fever >101 Stop: 01/08/17 20:01 Acetaminophen/Hydrocodone Bitart ([place] 5mg/325mg) 1 tab PO Q4H PRN PRN Reason: Pain (Moderate) Stop: 01/08/17 20:01 Last Admin: 11/12/16 17:09 Dose: 1 tab Al Hydrox/Mg Hydrox/Simethicone (Maalox) 30 ml PO Q6HR PRN PRN Reason: GI DISTRESS Stop: 01/08/17 20:01 Albuterol Sulfate (Albuterol 2.5mg/3ml Neb Ud) 2.5 mg IH Q2HR PRN PRN Reason: Shortness of Breath or Wheeze Stop: 01/08/17 20:01 Calcitonin [place] (Miacalcin) 200 iu NS DAILY [facility] Stop: 01/10/17 08:59 Last Admin: 11/12/16 09:05 Dose: 200 iu Dexamethasone Sodium Phosphate (Decadron) 40 mg IVP DAILY [facility] Stop: 01/09/17 10:59 Last Admin: 11/12/16 09:06 Dose: 40 mg Diphenhydramine HCl (Benadryl) 25 mg PO HS PRN PRN Reason: Itching Stop: 01/08/17 19:38 Last Admin: 11/09/16 20:38 Dose: 25 mg Docusate Sodium (Colace) 100 mg PO BID [facility] Stop: 01/09/17 08:59 Last Admin: 11/12/16 17:05 Dose: 100 mg Guaifenesin (Robitussin) 200 mg PO Q4HR PRN PRN Reason: Cough or Congestion Stop: 01/08/17 20:01 Sodium Chloride (Nacl 0.9%) 1,000 mls @ 100 mls/hr IV .Q10H [facility] Stop: 01/09/17 10:25 Last Admin: 11/12/16 08:25 Dose: Not Given Ipratropium [place] (Atrovent Neb 0.5mg/2.5ml) 0.5 mg IH Q2HR PRN PRN Reason: Shortness of Breath or Wheeze Stop: 01/08/17 20:01 Lorazepam (Ativan) 0.5 mg PO Q4HR PRN; Protocol PRN Reason: Anxiety Stop: 01/08/17 19:38 Last Admin: 11/12/16 17:05 Dose: 0.5 mg Magnesium Hydroxide (Milk Of Magnesia) 30 ml PO DAILY PRN PRN Reason: Constipation Stop: 01/08/17 20:00 Morphine Sulfate (Morphine) 1 mg IVP Q4HR PRN PRN Reason: Pain (Severe) Stop: 01/08/17 20:01 Ondansetron HCl (Zofran) 4 mg IV Q8H PRN PRN Reason: Nausea / Vomiting Stop: 01/08/17 20:01 Pantoprazole Sodium (Protonix) 40 mg PO BID [facility] Stop: 01/09/17 08:59 Last Admin: 11/12/16 17:05 Dose: 40 mg Zolpidem Tartrate (Ambien) 10 mg PO HS PRN PRN Reason: Insomnia Stop: 01/08/17 20:01 Last Admin: 11/11/16 21:38 Dose: 10 mg General: demented HEENT: NC/AT, PERRLA Neck: Supple, No JVD Lungs: congested, rales Cardiovascular: RRR, Normal S1, Normal S2 Abdomen: soft non-tender, globular, positive bowel sound Extremities: excoriation, contracture Neurological: no change - Procedures Procedures: Procedures Procedure Code Date BLOOD TRANSFUSION SERVICE 96226 11/09/16 TRANSFUSE NONAUT RED BLOOD CELLS IN PERIPH VEIN, PERC 17705O5 11/09/16 Internal Medicine Assmt/Plan - Assessment Assessment: arf intractable back pain severe anemia mm oa sad hypercalcemia - Plan Plan: cont on iv hydration pain control monitor renal fu\nction will refe4r to dr jose seen by heme
[2016-11-12 21:50] LABS: SURFACE AREA 1.37
[2016-11-12 22:12] LABS: TOTAL PROTEIN 24 HR URINE 7235.5 mg/24 hr (0-165)
[2016-11-13] MEDS: Calcitonin (Salmon) 200 Iu/Actuation 3.7mL NS SCH (09:16)
[2016-11-13] MEDS: Pantoprazole 40 mg EC Tab PO SCH ×3 (09:17→19:12)
[2016-11-13] MEDS: Dexamethasone Sodium Phos 10 mg/mL PF Vial IVP SCH (09:36)
--- NOTE | 2016-11-13 13:06 | General Progress Note ---
Subjective - Review of Systems Service Date: 11/13/16 Subjective: awake today, better spirits Objective - Results Result Diagrams: 11/12/16 18:31 11/12/16 18:40 Recent Labs: Laboratory Last Values WBC 7.5 Th/cmm (4.8-10.8) D 11/12/16 18:31 RBC 3.50 Mil/cmm (3.80-5.20) L 11/12/16 18:31 Hgb 9.7 gm/dL (11.7-16.1) L D 11/12/16 18:31 Hct 28.7 % (35.0-45.0) L D 11/12/16 18:31 MCV 81.9 fl (81-100) 11/12/16 18: MCH 27.9 pg (27.0-31.0) 11/12/16 18:31 MCHC Differential 34.0 pg (28.0-36.0) 11/12/16 18:31 RDW 18.9 % (11.5-20.0) 11/12/16 18:31 Plt Count 146 Th/cmm (150-400) L 11/12/16 18:31 MPV 7.6 fl 11/12/16 18:31 Neutrophils % 69.0 % (40.0-80.0) 11/10/16 08:00 Band Neutrophils % 0 % (0-10) 11/09/16 13:35 Lymphocytes % 20.7 % (20.0-50.0) 11/10/16 08:00 Monocytes % 8.9 % (2.0-10.0) 11/10/16 08:00 Eosinophils % 1.0 % (0.0-5.0) 11/10/16 08:00 Basophils % 0.4 % (0.0-2.0) 11/10/16 08:00 Neutrophils (Manual) 95 % (40-80) H 11/12/16 18:31 Lymphocytes 4 % (20-50) L 11/12/16 18:31 Monocytes 1 % (2-10) L 11/12/16 18:31 Eosinophils 2 % (0-5) 11/09/16 13:35 Basophils 0 % (0-3) 11/09/16 13:35 Platelet Estimate ADEQUATE (NORMAL) 11/12/16 18:31 Platelet Morphology NORMAL (NORMAL) 11/12/16 18:31 Microcytosis 2+ 11/09/16 13:35 RBC Morph Micro Appear NORMAL (NORMAL) 11/12/16 18:31 Sodium 134 mEq/L (136-145) L 11/12/16 18:31 Potassium 4.3 mEq/L (3.5-5.1) 11/12/16 18:31 Chloride 104 mEq/L (98-107) 11/12/16 18:31 Carbon Dioxide 23.0 mEq/L (21.0-31.0) 11/12/16 18:31 Anion Gap 11.3 (7.0-16.0) 11/12/16 18:31 BUN 58 mg/dL (7-25) H 11/12/16 18:31 Creatinine 2.5 mg/dL (0.6-1.2) H 11/12/16 18:40 Est GFR ( Amer) TNP 11/12/16 18:31 Est GFR (Non-Af Amer) TNP 11/12/16 18:31 BUN/Creatinine Ratio 23.2 11/12/16 18:31 Glucose 161 mg/dL (70-105) H 11/12/16 18:31 Whole Bld Lactic Acid 0.59 mmol/L (0.60-1.99) L 11/09/16 13:35 Calcium 9.0 mg/dL (8.6-10.3) 11/12/16 18:31 Phosphorus 3.1 mg/dL (2.5-5.0) 11/12/16 05:35 Iron 167 ug/dL (27-139) H 11/10/16 08:00 TIBC 382 ug/dL (250-450) 11/10/16 08:00 Iron Saturation 44 % (15-55) 11/10/16 08:00 Unsaturated IBC 215 ug/dL (118-369) 11/10/16 08:00 Ferritin 17 ng/mL (15-150) 11/10/16 08:00 Total Bilirubin 0.3 mg/dL (0.3-1.0) 11/09/16 13:35 AST 21 U/L (13-39) 11/09/16 13:35 ALT 12 U/L (7-52) 11/09/16 13:35 Alkaline Phosphatase 100 U/L (34-104) 11/09/16 13:35 Ammonia 36 umol/L (16-53) 11/10/16 08:00 Troponin I 0.03 ng/mL (0.01-0.05) 11/09/16 13:35 B-Natriuretic Peptide 193.0 pg/mL (5.0-100.0) H 11/10/16 08:00 Total Protein 6.3 gm/dL (6.0-8.3) 11/09/16 13:35 Albumin 3.9 gm/dL (3.7-5.3) 11/09/16 13:35 Globulin 2.4 gm/dL 11/09/16 13:35 Albumin/Globulin Ratio 1.6 (1.0-1.8) 11/09/16 13:35 Lipase 76 U/L (11-82) 11/09/16 13:35 Vitamin B12 653 pg/mL (211-946) 11/10/16 08:00 Folic Acid 10.6 ng/mL (>3.0) 11/10/16 08:00 TSH 2.10 uIU/ml (0.34-5.60) 11/10/16 08:00 Urine Source CLEAN C 11/09/16 17:35 Urine Color STRAW 11/09/16 17:35 Urine Clarity CLEAR (CLEAR) 11/09/16 17:35 Urine pH 5.5 11/09/16 17:35 Ur Specific [place] 1.020 (1.005-1.030) 11/09/16 17:35 Urine Protein 100 mg/dL (NEGATIVE) H 11/09/16 17:35 Urine Glucose (UA) NEGATIVE mg/dL (NEGATIVE) 11/09/16 17:35 Urine Ketones NEGATIVE mg/dL (NEGATIVE) 11/09/16 17:35 Urine Blood SMALL (NEGATIVE) H 11/09/16 17:35 Urine Nitrate NEGATIVE (NEGATIVE) 11/09/16 17:35 Urine Bilirubin NEGATIVE (NEGATIVE) 11/09/16 17:35 Urine Urobilinogen 0.2 E.U./dL (0.2 - 1.0) 11/09/16 17:35 Ur Leukocyte Esterase TRACE (NEGATIVE) H 11/09/16 17:35 Urine RBC 2-5 /hpf (0-5) 11/09/16 17:35 Urine WBC 0-2 /hpf (0-5) 11/09/16 17:35 Ur Epithelial Cells NONE SEEN /lpf (FEW) 11/09/16 17:35 Urine Bacteria NONE SEEN /hpf (NONE SEEN) 11/09/16 17:35 U Random Total Protein 499.0 mg/dL 11/12/16 18:40 Urine Collection Time 24 hours 11/12/16 18:40 Urine Total Volume 1450 ml 11/12/16 18:40 Urine Creatinine 46.0 mg/dl (28.0-217.0) 11/12/16 18:40 Creat Clearance 24 Hr 23 ml/min (88.00-128.00) L 11/12/16 18:40 U Tot Protein 24h, Calc 7235.5 mg/24 hr (0-165) H 11/12/16 18:40 Body Surface Area 1.37 11/12/16 18:40 Serum Immunofixation 486 mg/dL (700-1600) L 11/10/16 11:50 Blood Type O POSITIVE 11/09/16 16:20 Antibody Screen NEGATIVE 11/09/16 16:20 Crossmatch See Detail 11/09/16 16:20 - Physical Exam Vitals and I&O: Vital Signs Temp 98.8 F 11/13/16 09:00 Pulse 84 11/13/16 09:00 Resp 18 11/13/16 09:00 BP 143/60 11/13/16 09:00 Pulse Ox 93 11/12/16 20:20 Intake & Output 11/12/16 11/13/16 11/13/16 18:59 06:59 18:59 Intake Total 650 400 Balance 650 400 Intake: Oral 650 400 Other: # Voids 6 3 # Bowel Movements 0 Active Medications: Current Medications Acetaminophen (Tylenol) 650 mg PO Q4HR PRN PRN Reason: Mild Pain or Fever >101 Stop: 01/08/17 20:01 Acetaminophen/Hydrocodone Bitart ([place] 5mg/325mg) 1 tab PO Q4H PRN PRN Reason: Pain (Moderate) Stop: 01/08/17 20:01 Last Admin: 11/12/16 17:09 Dose: 1 tab Al Hydrox/Mg Hydrox/Simethicone (Maalox) 30 ml PO Q6HR PRN PRN Reason: GI DISTRESS Stop: 01/08/17 20:01 Albuterol Sulfate (Albuterol 2.5mg/3ml Neb Ud) 2.5 mg IH Q2HR PRN PRN Reason: Shortness of Breath or Wheeze Stop: 01/08/17 20:01 Calcitonin [place] (Miacalcin) 200 iu NS DAILY [facility] Stop: 01/10/17 08:59 Last Admin: 11/13/16 09:16 Dose: 200 iu Dexamethasone Sodium Phosphate (Decadron) 40 mg IVP DAILY [facility] Stop: 01/09/17 10:59 Last Admin: 11/13/16 09:36 Dose: 40 mg Diphenhydramine HCl (Benadryl) 25 mg PO HS PRN PRN Reason: Itching Stop: 01/08/17 19:38 Last Admin: 11/09/16 20:38 Dose: 25 mg Docusate Sodium (Colace) 100 mg PO BID [facility] Stop: 01/09/17 08:59 Last Admin: 11/13/16 09:17 Dose: 100 mg Guaifenesin (Robitussin) 200 mg PO Q4HR PRN PRN Reason: Cough or Congestion Stop: 01/08/17 20:01 Sodium Chloride (Nacl 0.9%) 1,000 mls @ 100 mls/hr IV .Q10H [facility] Stop: 01/09/17 10:25 Last Admin: 11/12/16 23:01 Dose: 100 mls/hr Ipratropium [place] (Atrovent Neb 0.5mg/2.5ml) 0.5 mg IH Q2HR PRN PRN Reason: Shortness of Breath or Wheeze Stop: 01/08/17 20:01 Lorazepam (Ativan) 0.5 mg PO Q4HR PRN; Protocol PRN Reason: Anxiety Stop: 01/08/17 19:38 Last Admin: 11/12/16 17:05 Dose: 0.5 mg Magnesium Hydroxide (Milk Of Magnesia) 30 ml PO DAILY PRN PRN Reason: Constipation Stop: 01/08/17 20:00 Morphine Sulfate (Morphine) 1 mg IVP Q4HR PRN PRN Reason: Pain (Severe) Stop: 01/08/17 20:01 Ondansetron HCl (Zofran) 4 mg IV Q8H PRN PRN Reason: Nausea / Vomiting Stop: 01/08/17 20:01 Pantoprazole Sodium (Protonix) 40 mg PO BID [facility] Stop: 01/09/17 08:59 Last Admin: 11/13/16 09:17 Dose: 40 mg Zolpidem Tartrate (Ambien) 10 mg PO HS PRN PRN Reason: Insomnia Stop: 01/08/17 20:01 Last Admin: 11/11/16 21:38 Dose: 10 mg General: Alert, No acute distress HEENT: Atraumatic, Mucous membr. moist/pink Neck: Supple, +2 carotid pulse wo bruit Cardiovascular: Regular rate, Normal S1, Normal S2 Lungs: Clear to auscultation Abdomen: Bowel sounds, Soft Extremities: no Edema Neurological: Sensation intact Skin: no Rash Psych/Mental Status: Mood NL - Procedures Procedures: Procedures Procedure Code Date BLOOD TRANSFUSION SERVICE 64196 11/09/16 TRANSFUSE NONAUT RED BLOOD CELLS IN PERIPH VEIN, PERC 14255D9 11/09/16 Assessment/Plan - Problem List Patient Problems: All Active Problems Agitation (Acute) R45.1 Anemia (Acute) D64.9 Osteoarthritis (Acute) M19.90 Pacemaker (Acute) Z95.0 - Assessment Assessment: 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 to MM, CKD DJD Osteopenia Scizoaffective disorder S/P PPP Backpain 2nd to bone mets Nephrotic Proteinuria - Plan Plan: Lab - Result Diagrams 11/10/16 08:00 11/10/16 08:00 Current Medications Acetaminophen (Tylenol) 650 mg PO Q4HR PRN PRN Reason: Mild Pain or Fever >101 Stop: 01/08/17 20:01 Acetaminophen/Hydrocodone Bitart ([place] 5mg/325mg) 1 tab PO Q4H PRN PRN Reason: Pain (Moderate) Stop: 01/08/17 20:01 Last Admin: 11/12/16 05:14 Dose: 1 tab Al Hydrox/Mg Hydrox/Simethicone (Maalox) 30 ml PO Q6HR PRN PRN Reason: GI DISTRESS Stop: 01/08/17 20:01 Albuterol Sulfate (Albuterol 2.5mg/3ml Neb Ud) 2.5 mg IH Q2HR PRN PRN Reason: Shortness of Breath or Wheeze Stop: 01/08/17 20:01 Calcitonin [place] (Miacalcin) 200 iu NS DAILY [facility] Stop: 01/10/17 08:59 Last Admin: 11/12/16 09:05 Dose: 200 iu Dexamethasone Sodium Phosphate (Decadron) 40 mg IVP DAILY [facility] Stop: 01/09/17 10:59 Last Admin: 11/12/16 09:06 Dose: 40 mg Diphenhydramine HCl (Benadryl) 25 mg PO HS PRN PRN Reason: Itching Stop: 01/08/17 19:38 Last Admin: 11/09/16 20:38 Dose: 25 mg Docusate Sodium (Colace) 100 mg PO BID [facility] Stop: 01/09/17 08:59 Last Admin: 11/12/16 09:05 Dose: 100 mg Furosemide (Lasix) 20 mg IVP DAILY [facility] Stop: 01/09/17 10:29 Last Admin: 11/12/16 09:06 Dose: 20 mg Guaifenesin (Robitussin) 200 mg PO Q4HR PRN PRN Reason: Cough or Congestion Stop: 01/08/17 20:01 Sodium Chloride (Nacl 0.9%) 1,000 mls @ 100 mls/hr IV .Q10H [facility] Stop: 01/09/17 10:25 Last Admin: 11/12/16 08:25 Dose: Not Given Ipratropium [place] (Atrovent Neb 0.5mg/2.5ml) 0.5 mg IH Q2HR PRN PRN Reason: Shortness of Breath or Wheeze Stop: 01/08/17 20:01 Lorazepam (Ativan) 0.5 mg PO Q4HR PRN; Protocol PRN Reason: Anxiety Stop: 01/08/17 19:38 Last Admin: 11/12/16 09:05 Dose: 0.5 mg Magnesium Hydroxide (Milk Of Magnesia) 30 ml PO DAILY PRN PRN Reason: Constipation Stop: 01/08/17 20:00 Morphine Sulfate (Morphine) 1 mg IVP Q4HR PRN PRN Reason: Pain (Severe) Stop: 01/08/17 20:01 Ondansetron HCl (Zofran) 4 mg IV Q8H PRN PRN Reason: Nausea / Vomiting Stop: 01/08/17 20:01 Pantoprazole Sodium (Protonix) 40 mg PO BID [facility] Stop: 01/09/17 08:59 Last Admin: 11/12/16 09:05 Dose: 40 mg Zolpidem Tartrate (Ambien) 10 mg PO HS PRN PRN Reason: Insomnia Stop: 01/08/17 20:01 Last Admin: 11/11/16 21:38 Dose: 10 mg Kidney fnc better today w/ BUN/CR of 58/2.5 continue ivf, dc lasix continue Calcitonin followed by [place], monitor Ca closely supportive care only due to psychosis f/u electrolytes, cbc 24 hr. protein 7235 mg
--- NOTE | 2016-11-13 15:27 | Internal Medicine Prog Note ---
Internal Medicine Subjective - Subjective Patient seen and examined:: with staff, chart reviewed Patient is:: awake, verbal, interactive Per staff patient is:: no adverse event, agitated, combative, noncompliant, confused Internal Medicine Objective - Results Result Diagrams: 11/12/16 18:31 11/12/16 18:40 Recent Labs: Laboratory Last Values WBC 7.5 Th/cmm (4.8-10.8) D 11/12/16 18:31 RBC 3.50 Mil/cmm (3.80-5.20) L 11/12/16 18:31 Hgb 9.7 gm/dL (11.7-16.1) L D 11/12/16 18:31 Hct 28.7 % (35.0-45.0) L D 11/12/16 18:31 MCV 81.9 fl (81-100) 11/12/16 18:31 MCH 27.9 pg (27.0-31.0) 11/12/16 18:31 MCHC Differential 34.0 pg (28.0-36.0) 11/12/16 18:31 RDW 18.9 % (11.5-20.0) 11/12/16 18:31 Plt Count 146 Th/cmm (150-400) L 11/12/16 18:31 MPV 7.6 fl 11/12/16 18:31 Neutrophils % 69.0 % (40.0-80.0) 11/10/16 08:00 Band Neutrophils % 0 % (0-10) 11/09/16 13:35 Lymphocytes % 20.7 % (20.0-50.0) 11/10/16 08:00 Monocytes % 8.9 % (2.0-10.0) 11/10/16 08:00 Eosinophils % 1.0 % (0.0-5.0) 11/10/16 08:00 Basophils % 0.4 % (0.0-2.0) 11/10/16 08:00 Neutrophils (Manual) 95 % (40-80) H 11/12/16 18:31 Lymphocytes 4 % (20-50) L 11/12/16 18:31 Monocytes 1 % (2-10) L 11/12/16 18:31 Eosinophils 2 % (0-5) 11/09/16 13:35 Basophils 0 % (0-3) 11/09/16 13:35 Platelet Estimate ADEQUATE (NORMAL) 11/12/16 18:31 Platelet Morphology NORMAL (NORMAL) 11/12/16 18:31 Microcytosis 2+ 11/09/16 13:35 RBC Morph Micro Appear NORMAL (NORMAL) 11/12/16 18:31 Sodium 134 mEq/L (136-145) L 11/12/16 18:31 Potassium 4.3 mEq/L (3.5-5.1) 11/12/16 18:31 Chloride 104 mEq/L (98-107) 11/12/16 18:31 Carbon Dioxide 23.0 mEq/L (21.0-31.0) 11/12/16 18:31 Anion Gap 11.3 (7.0-16.0) 11/12/16 18:31 BUN 58 mg/dL (7-25) H 11/12/16 18:31 Creatinine 2.5 mg/dL (0.6-1.2) H 11/12/16 18:40 Est GFR ( Amer) TNP 11/12/16 18:31 Est GFR (Non-Af Amer) TNP 11/12/16 18:31 BUN/Creatinine Ratio 23.2 11/12/16 18:31 Glucose 161 mg/dL (70-105) H 11/12/16 18:31 Whole Bld Lactic Acid 0.59 mmol/L (0.60-1.99) L 11/09/16 13:35 Calcium 9.0 mg/dL (8.6-10.3) 11/12/16 18:31 Phosphorus 3.1 mg/dL (2.5-5.0) 11/12/16 05:35 Iron 167 ug/dL (27-139) H 11/10/16 08:00 TIBC 382 ug/dL (250-450) 11/10/16 08:00 Iron Saturation 44 % (15-55) 11/10/16 08:00 Unsaturated IBC 215 ug/dL (118-369) 11/10/16 08:00 Ferritin 17 ng/mL (15-150) 11/10/16 08:00 Total Bilirubin 0.3 mg/dL (0.3-1.0) 11/09/16 13:35 AST 21 U/L (13-39) 11/09/16 13:35 ALT 12 U/L (7-52) 11/09/16 13:35 Alkaline Phosphatase 100 U/L (34-104) 11/09/16 13:35 Ammonia 36 umol/L (16-53) 11/10/16 08:00 Troponin I 0.03 ng/mL (0.01-0.05) 11/09/16 13:35 B-Natriuretic Peptide 193.0 pg/mL (5.0-100.0) H 11/10/16 08:00 Total Protein 6.3 gm/dL (6.0-8.3) 11/09/16 13:35 Albumin 3.9 gm/dL (3.7-5.3) 11/09/16 13:35 Globulin 2.4 gm/dL 11/09/16 13:35 Albumin/Globulin Ratio 1.6 (1.0-1.8) 11/09/16 13:35 Lipase 76 U/L (11-82) 11/09/16 13:35 Vitamin B12 653 pg/mL (211-946) 11/10/16 08:00 Folic Acid 10.6 ng/mL (>3.0) 11/10/16 08:00 TSH 2.10 uIU/ml (0.34-5.60) 11/10/16 08:00 Urine Source CLEAN C 11/09/16 17:35 Urine Color STRAW 11/09/16 17:35 Urine Clarity CLEAR (CLEAR) 11/09/16 17:35 Urine pH 5.5 11/09/16 17:35 Ur Specific [place] 1.020 (1.005-1.030) 11/09/16 17:35 Urine Protein 100 mg/dL (NEGATIVE) H 11/09/16 17:35 Urine Glucose (UA) NEGATIVE mg/dL (NEGATIVE) 11/09/16 17:35 Urine Ketones NEGATIVE mg/dL (NEGATIVE) 11/09/16 17:35 Urine Blood SMALL (NEGATIVE) H 11/09/16 17:35 Urine Nitrate NEGATIVE (NEGATIVE) 11/09/16 17:35 Urine Bilirubin NEGATIVE (NEGATIVE) 11/09/16 17:35 Urine Urobilinogen 0.2 E.U./dL (0.2 - 1.0) 11/09/16 17:35 Ur Leukocyte Esterase TRACE (NEGATIVE) H 11/09/16 17:35 Urine RBC 2-5 /hpf (0-5) 11/09/16 17:35 Urine WBC 0-2 /hpf (0-5) 11/09/16 17:35 Ur Epithelial Cells NONE SEEN /lpf (FEW) 11/09/16 17:35 Urine Bacteria NONE SEEN /hpf (NONE SEEN) 11/09/16 17:35 U Random Total Protein 499.0 mg/dL 11/12/16 18:40 Urine Collection Time 24 hours 11/12/16 18:40 Urine Total Volume 1450 ml 11/12/16 18:40 Urine Creatinine 46.0 mg/dl (28.0-217.0) 11/12/16 18:40 Creat Clearance 24 Hr 23 ml/min (88.00-128.00) L 11/12/16 18:40 U Tot Protein 24h, Calc 7235.5 mg/24 hr (0-165) H 11/12/16 18:40 Body Surface Area 1.37 11/12/16 18:40 Serum Immunofixation 486 mg/dL (700-1600) L 11/10/16 11:50 Blood Type O POSITIVE 11/09/16 16:20 Antibody Screen NEGATIVE 11/09/16 16:20 Crossmatch See Detail 11/09/16 16:20 - Physical Exam Vitals and I&O: Vital Signs Temp 98.8 F 11/13/16 09:00 Pulse 84 11/13/16 09:00 Resp 18 11/13/16 09:00 BP 143/60 11/13/16 09:00 Pulse Ox 93 11/12/16 20:20 Intake & Output 11/12/16 11/13/16 11/13/16 18:59 06:59 18:59 Intake Total 650 400 Balance 650 400 Intake: Oral 650 400 Other: # Voids 6 3 # Bowel Movements 0 Active Medications: Current Medications Acetaminophen (Tylenol) 650 mg PO Q4HR PRN PRN Reason: Mild Pain or Fever >101 Stop: 01/08/17 20:01 Acetaminophen/Hydrocodone Bitart ([place] 5mg/325mg) 1 tab PO Q4H PRN PRN Reason: Pain (Moderate) Stop: 01/08/17 20:01 Last Admin: 11/12/16 17:09 Dose: 1 tab Al Hydrox/Mg Hydrox/Simethicone (Maalox) 30 ml PO Q6HR PRN PRN Reason: GI DISTRESS Stop: 01/08/17 20:01 Albuterol Sulfate (Albuterol 2.5mg/3ml Neb Ud) 2.5 mg IH Q2HR PRN PRN Reason: Shortness of Breath or Wheeze Stop: 01/08/17 20:01 Calcitonin [place] (Miacalcin) 200 iu NS DAILY NICOLE Stop: 01/10/17 08:59 Last Admin: 11/13/16 09:16 Dose: 200 iu Dexamethasone Sodium Phosphate (Decadron) 40 mg IVP DAILY NICOLE Stop: 01/09/17 10:59 Last Admin: 11/13/16 09:36 Dose: 40 mg Diphenhydramine HCl (Benadryl) 25 mg PO HS PRN PRN Reason: Itching Stop: 01/08/17 19:38 Last Admin: 11/09/16 20:38 Dose: 25 mg Docusate Sodium (Colace) 100 mg PO BID [facility] Stop: 01/09/17 08:59 Last Admin: 11/13/16 09:17 Dose: 100 mg Guaifenesin (Robitussin) 200 mg PO Q4HR PRN PRN Reason: Cough or Congestion Stop: 01/08/17 20:01 Sodium Chloride (Nacl 0.9%) 1,000 mls @ 100 mls/hr IV .Q10H [facility] Stop: 01/09/17 10:25 Last Admin: 11/12/16 23:01 Dose: 100 mls/hr Ipratropium [place] (Atrovent Neb 0.5mg/2.5ml) 0.5 mg IH Q2HR PRN PRN Reason: Shortness of Breath or Wheeze Stop: 01/08/17 20:01 Lorazepam (Ativan) 0.5 mg PO Q4HR PRN; Protocol PRN Reason: Anxiety Stop: 01/08/17 19:38 Last Admin: 11/12/16 17:05 Dose: 0.5 mg Magnesium Hydroxide (Milk Of Magnesia) 30 ml PO DAILY PRN PRN Reason: Constipation Stop: 01/08/17 20:00 Morphine Sulfate (Morphine) 1 mg IVP Q4HR PRN PRN Reason: Pain (Severe) Stop: 01/08/17 20:01 Ondansetron HCl (Zofran) 4 mg IV Q8H PRN PRN Reason: Nausea / Vomiting Stop: 01/08/17 20:01 Pantoprazole Sodium (Protonix) 40 mg PO BID NICOLE Stop: 01/09/17 08:59 Last Admin: 11/13/16 09:17 Dose: 40 mg Zolpidem Tartrate (Ambien) 10 mg PO HS PRN PRN Reason: Insomnia Stop: 01/08/17 20:01 Last Admin: 11/11/16 21:38 Dose: 10 mg General: demented HEENT: NC/AT, PERRLA Neck: Supple, No JVD Lungs: congested, rales Cardiovascular: RRR, Normal S1, Normal S2 Abdomen: soft non-tender, globular Extremities: excoriation, contracture Neurological: no change - Procedures Procedures: Procedures Procedure Code Date BLOOD TRANSFUSION SERVICE 55002 11/09/16 TRANSFUSE NONAUT RED BLOOD CELLS IN PERIPH VEIN, PERC 74316N2 11/09/16 Internal Medicine Assmt/Plan - Assessment Assessment: arf intractable back pain severe anemia mm oa sad hypercalcemia - Plan Plan: cont on iv hydration pain control monitor renal fu\nction will refe4r to dr jose seen by herman
[2016-11-13] MEDS: Hydrocodone/APAP 5mg/325mg Tab PO PRN (21:18)
[2016-11-14] MEDS: Pantoprazole 40 mg EC Tab PO SCH ×2 (08:38→16:50)
[2016-11-14] MEDS: Dexamethasone Sodium Phos 10 mg/mL PF Vial IVP SCH (08:38)
[2016-11-14] MEDS: Calcitonin (Salmon) 200 Iu/Actuation 3.7mL NS SCH (08:39)
--- NOTE | 2016-11-14 16:42 | General Progress Note ---
Subjective - Review of Systems Service Date: 11/14/16 (no change) Objective - Results Result Diagrams: 11/12/16 18:31 11/12/16 18:40 Recent Labs: Laboratory Last Values WBC 7.5 Th/cmm (4.8-10.8) D 11/12/16 18:31 RBC 3.50 Mil/cmm (3.80-5.20) L 11/12/16 18:31 Hgb 9.7 gm/dL (11.7-16.1) L D 11/12/16 18:31 Hct 28.7 % (35.0-45.0) L D 11/12/16 18:31 MCV 81.9 fl (81-100) 11/12/16 18: MCH 27.9 pg (27.0-31.0) 11/12/16 18: MCHC Differential 34.0 pg (28.0-36.0) 11/12/16 18:31 RDW 18.9 % (11.5-20.0) 11/12/16 18:31 Plt Count 146 Th/cmm (150-400) L 11/12/16 18:31 MPV 7.6 fl 11/12/16 18:31 Neutrophils % 69.0 % (40.0-80.0) 11/10/16 08:00 Band Neutrophils % 0 % (0-10) 11/09/16 13:35 Lymphocytes % 20.7 % (20.0-50.0) 11/10/16 08:00 Monocytes % 8.9 % (2.0-10.0) 11/10/16 08:00 Eosinophils % 1.0 % (0.0-5.0) 11/10/16 08:00 Basophils % 0.4 % (0.0-2.0) 11/10/16 08:00 Neutrophils (Manual) 95 % (40-80) H 11/12/16 18:31 Lymphocytes 4 % (20-50) L 11/12/16 18:31 Monocytes 1 % (2-10) L 11/12/16 18:31 Eosinophils 2 % (0-5) 11/09/16 13:35 Basophils 0 % (0-3) 11/09/16 13:35 Platelet Estimate ADEQUATE (NORMAL) 11/12/16 18:31 Platelet Morphology NORMAL (NORMAL) 11/12/16 18:31 Microcytosis 2+ 11/09/16 13:35 RBC Morph Micro Appear NORMAL (NORMAL) 11/12/16 18:31 Sodium 134 mEq/L (136-145) L 11/12/16 18:31 Potassium 4.3 mEq/L (3.5-5.1) 11/12/16 18:31 Chloride 104 mEq/L (98-107) 11/12/16 18:31 Carbon Dioxide 23.0 mEq/L (21.0-31.0) 11/12/16 18:31 Anion Gap 11.3 (7.0-16.0) 11/12/16 18:31 BUN 58 mg/dL (7-25) H 11/12/16 18:31 Creatinine 2.5 mg/dL (0.6-1.2) H 11/12/16 18:40 Est GFR ( Amer) TNP 11/12/16 18:31 Est GFR (Non-Af Amer) TNP 11/12/16 18:31 BUN/Creatinine Ratio 23.2 11/12/16 18:31 Glucose 161 mg/dL (70-105) H 11/12/16 18:31 Whole Bld Lactic Acid 0.59 mmol/L (0.60-1.99) L 11/09/16 13:35 Calcium 9.0 mg/dL (8.6-10.3) 11/12/16 18:31 Phosphorus 3.1 mg/dL (2.5-5.0) 11/12/16 05:35 Iron 167 ug/dL (27-139) H 11/10/16 08:00 TIBC 382 ug/dL (250-450) 11/10/16 08:00 Iron Saturation 44 % (15-55) 11/10/16 08:00 Unsaturated IBC 215 ug/dL (118-369) 11/10/16 08:00 Ferritin 17 ng/mL (15-150) 11/10/16 08:00 Total Bilirubin 0.3 mg/dL (0.3-1.0) 11/09/16 13:35 AST 21 U/L (13-39) 11/09/16 13:35 ALT 12 U/L (7-52) 11/09/16 13:35 Alkaline Phosphatase 100 U/L (34-104) 11/09/16 13:35 Ammonia 36 umol/L (16-53) 11/10/16 08:00 Troponin I 0.03 ng/mL (0.01-0.05) 11/09/16 13:35 B-Natriuretic Peptide 193.0 pg/mL (5.0-100.0) H 11/10/16 08:00 Total Protein 6.3 gm/dL (6.0-8.3) 11/09/16 13:35 Albumin 3.9 gm/dL (3.7-5.3) 11/09/16 13:35 Globulin 2.4 gm/dL 11/09/16 13:35 Albumin/Globulin Ratio 1.6 (1.0-1.8) 11/09/16 13:35 Lipase 76 U/L (11-82) 11/09/16 13:35 Vitamin B12 653 pg/mL (211-946) 11/10/16 08:00 Folic Acid 10.6 ng/mL (>3.0) 11/10/16 08:00 TSH 2.10 uIU/ml (0.34-5.60) 11/10/16 08:00 Urine Source CLEAN C 11/09/16 17:35 Urine Color STRAW 11/09/16 17:35 Urine Clarity CLEAR (CLEAR) 11/09/16 17:35 Urine pH 5.5 11/09/16 17:35 Ur Specific [place] 1.020 (1.005-1.030) 11/09/16 17:35 Urine Protein 100 mg/dL (NEGATIVE) H 11/09/16 17:35 Urine Glucose (UA) NEGATIVE mg/dL (NEGATIVE) 11/09/16 17:35 Urine Ketones NEGATIVE mg/dL (NEGATIVE) 11/09/16 17:35 Urine Blood SMALL (NEGATIVE) H 11/09/16 17:35 Urine Nitrate NEGATIVE (NEGATIVE) 11/09/16 17:35 Urine Bilirubin NEGATIVE (NEGATIVE) 11/09/16 17:35 Urine Urobilinogen 0.2 E.U./dL (0.2 - 1.0) 11/09/16 17:35 Ur Leukocyte Esterase TRACE (NEGATIVE) H 11/09/16 17:35 Urine RBC 2-5 /hpf (0-5) 11/09/16 17:35 Urine WBC 0-2 /hpf (0-5) 11/09/16 17:35 Ur Epithelial Cells NONE SEEN /lpf (FEW) 11/09/16 17:35 Urine Bacteria NONE SEEN /hpf (NONE SEEN) 11/09/16 17:35 U Random Total Protein 499.0 mg/dL 11/12/16 18:40 Urine Collection Time 24 hours 11/12/16 18:40 Urine Total Volume 1450 ml 11/12/16 18:40 Urine Creatinine 46.0 mg/dl (28.0-217.0) 11/12/16 18:40 Creat Clearance 24 Hr 23 ml/min (88.00-128.00) L 11/12/16 18:40 U Tot Protein 24h, Calc 7235.5 mg/24 hr (0-165) H 11/12/16 18:40 Body Surface Area 1.37 11/12/16 18:40 Serum Immunofixation 486 mg/dL (700-1600) L 11/10/16 11:50 Blood Type O POSITIVE 11/09/16 16:20 Antibody Screen NEGATIVE 11/09/16 16:20 Crossmatch See Detail 11/09/16 16:20 - Physical Exam Vitals and I&O: Vital Signs Temp 98.8 F 11/14/16 14:36 Pulse 72 11/14/16 14:36 Resp 20 11/14/16 14:36 BP 135/57 11/14/16 12:00 Pulse Ox 95 11/14/16 14:36 Intake & Output 11/13/16 11/14/16 11/14/16 18:59 06:59 18:59 Intake Total 600 500 Balance 600 500 Intake: Oral 600 500 Other: # Voids 4 3 # Bowel Movements 2 1 Active Medications: Current Medications Acetaminophen (Tylenol) 650 mg PO Q4HR PRN PRN Reason: Mild Pain or Fever >101 Stop: 01/08/17 20:01 Acetaminophen/Hydrocodone Bitart ([place] 5mg/325mg) 1 tab PO Q4H PRN PRN Reason: Pain (Moderate) Stop: 01/08/17 20:01 Last Admin: 11/13/16 21:18 Dose: 1 tab Al Hydrox/Mg Hydrox/Simethicone (Maalox) 30 ml PO Q6HR PRN PRN Reason: GI DISTRESS Stop: 01/08/17 20:01 Albuterol Sulfate (Albuterol 2.5mg/3ml Neb Ud) 2.5 mg IH Q2HR PRN PRN Reason: Shortness of Breath or Wheeze Stop: 01/08/17 20:01 Diphenhydramine HCl (Benadryl) 25 mg PO HS PRN PRN Reason: Itching Stop: 01/08/17 19:38 Last Admin: 11/09/16 20:38 Dose: 25 mg Docusate Sodium (Colace) 100 mg PO BID NICOLE Stop: 01/09/17 08:59 Last Admin: 11/14/16 08:38 Dose: 100 mg Guaifenesin (Robitussin) 200 mg PO Q4HR PRN PRN Reason: Cough or Congestion Stop: 01/08/17 20:01 Ipratropium [place] (Atrovent Neb 0.5mg/2.5ml) 0.5 mg IH Q2HR PRN PRN Reason: Shortness of Breath or Wheeze Stop: 01/08/17 20:01 Lorazepam (Ativan) 0.5 mg PO Q4HR PRN; Protocol PRN Reason: Anxiety Stop: 01/08/17 19:38 Last Admin: 11/14/16 09:23 Dose: 0.5 mg Magnesium Hydroxide (Milk Of Magnesia) 30 ml PO DAILY PRN PRN Reason: Constipation Stop: 01/08/17 20:00 Ondansetron HCl (Zofran) 4 mg IV Q8H PRN PRN Reason: Nausea / Vomiting Stop: 01/08/17 20:01 Pantoprazole Sodium (Protonix) 40 mg PO BID [facility] Stop: 01/09/17 08:59 Last Admin: 11/14/16 08:38 Dose: 40 mg Zolpidem Tartrate (Ambien) 10 mg PO HS PRN PRN Reason: Insomnia Stop: 01/08/17 20:01 Last Admin: 11/11/16 21:38 Dose: 10 mg General: Alert, Other (confusional) Neck: Supple Cardiovascular: Regular rate Lungs: Clear to auscultation Abdomen: Bowel sounds (normal) - Procedures Procedures: Procedures Procedure Code Date BLOOD TRANSFUSION SERVICE 05880 11/09/16 TRANSFUSE NONAUT RED BLOOD CELLS IN PERIPH VEIN, PERC 05922W4 11/09/16 Assessment/Plan - Problem List Patient Problems: All Active Problems 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
--- NOTE | 2016-11-15 00:14 | Discharge Summary ---
DATE OF DISCHARGE: 11/14/2016 CHIEF COMPLAINT: Intractable back pain. FINAL DIAGNOSES: Intractable back pain secondary to multiple myeloma, severe osteoarthritis, acute renal failure, hypercholesterolemia, pacemaker, schizoaffective disorder and electrolyte abnormalities. HISTORY OF PRESENT ILLNESS: This is an 81-year-old female with history of ____ arthritis, multiple myeloma/malignancy, being followed by Oncology, was brought into the ER. The patient was found to be in acute renal failure. PHYSICAL EXAMINATION: VITAL SIGNS: Blood pressure 152/69, respirations 18, pulse 73 and temperature 98.9. GENERAL: Elderly female, appears her stated age, chronically ill. NECK: Supple. No mass. LUNGS: Equal breath sounds, few rhonchi. HEART: Regular rate and rhythm. Systolic ejection murmur. ABDOMEN: Soft and nontender. EXTREMITIES: Positive excoriations. NEUROLOGIC: Limited. HOSPITAL COURSE: The patient was admitted to telemetry, continued on IV hydration, given adequate pain control. The patient was given a dose of steroids. Her symptoms improved. The patient was seen with Dr. Cee, hematology, DrJimbo ____, for renal. The patient cleared for discharge to be followed outpatient. CONDITION ON DISCHARGE: Fair. OVERALL PROGNOSIS: Poor. DISCHARGE INSTRUCTIONS: The patient to continue current medical regimen. The patient will ____ follow with Hematology. JOB# [id number]
[2016-11-15 03:10] LABS: HEP B CORE IGM Negative (Negative); HEP C ANTIBODY 0.1 s/co ratio (0.0-0.9)
== END 2016-11-14 17:30 | DRG 841 ==
LOC: ER 12:51 → MSI 17:50
PROVIDERS: ADMIT Internal Medicine; ATTEND Internal Medicine
PROC: 30233N1 Transfusion of Nonautologous Red Blood Cells into Peripheral Vein, Percutaneous Approach (ICD-10-PCS; principal; 2016-11-09)
DX: C90.00 Multiple myeloma not having achieved remission (principal); C79.51 Secondary malignant neoplasm of bone; N17.9 Acute kidney failure, unspecified; E83.52 Hypercalcemia; F03.90 Unspecified dementia, unspecified severity, without behavioral disturbance, psychotic disturbance, mood disturbance, and anxiety; E87.1 Hypo-osmolality and hyponatremia; D63.0 Anemia in neoplastic disease; N18.3 Chronic kidney disease, stage 3 (moderate); F25.9 Schizoaffective disorder, unspecified; G89.3 Neoplasm related pain (acute) (chronic); M54.9 Dorsalgia, unspecified; M19.90 Unspecified osteoarthritis, unspecified site; E78.5 Hyperlipidemia, unspecified; R73.9 Hyperglycemia, unspecified; R91.1 Solitary pulmonary nodule; M81.0 Age-related osteoporosis without current pathological fracture; M85.80 Other specified disorders of bone density and structure, unspecified site; Z74.01 Bed confinement status; Z95.0 Presence of cardiac pacemaker; Z91.14 Patient's other noncompliance with medication regimen
CPT/HCPCS: 36415-UA; 71250-TC; 72128-TC; 72131-TC; 74150-TC; 80048-TC; 80053-TC; 80074-90; 81001-TC; 81050-TC; 82140-TC; 82575-TC; 82607-90; 82728-90; 82746-90; 82784-90; 83540-90; 83550-90; 83605; 83690-TC; 83880-TC; 84100-TC; 84156-TC; 84443-TC; 84484-TC; 85007-TC; 85025-TC; 85027-TC; 86334-90; 86850-TC; 86900-TC; 86901-TC; 86922-TC; 93005; 94760; J0630; J1940; J2060; J7030; J7042; P9016; Z7610